=== PATIENT | male | born 1950 | race Caucasian/White ===

== ENCOUNTER 2020-07-15 07:14 | Outpatient (REF) | payer MEDICARE, SELFPAY ==
[2020-07-15 12:22] LABS: Alanine Aminotransferase 28 U/L (0-40); Albumin Level 4.2 g/dL (3.5-5.0); Alkaline Phosphatase 122 U/L (39-117); Anion Gap 12 (12-20); Aspartate Amino Transferase 23 U/L (5-37); Bilirubin Total 2.1 mg/dL (0.0-1.0); Blood Urea Nitrogen 13 mg/dL (9-16); Calcium 8.9 mg/dL (8.4-10.2); Carbon Dioxide 27 mmol/L (22-29); Chloride 105 mmol/L (96-108); Cholesterol 189 mg/dL; Estimated Glomerular Filt Rate > 60; Glucose Fasting 108 mg/dL (60-99); HDL Cholesterol 43 mg/dL; LDL Cholesterol Calculated 128 mg/dl; Potassium 4.5 mmol/l (3.3-5.1); Sodium 139 mmol/L (135-145); Total Protein 6.6 g/dL (6.5-8.0); Triglycerides 91 mg/dL
== END 2020-07-15 07:15 | disposition home or self-care (01) ==
LOC: HO.HMGCLDS 07:14
PROVIDERS: PCP Internal Medicine; Visit Provider Urology
DX: E66.9 Obesity, unspecified (principal); K21.9 Gastro-esophageal reflux disease without esophagitis; N40.0 Benign prostatic hyperplasia without lower urinary tract symptoms; I10 Essential (primary) hypertension; R73.02 Impaired glucose tolerance (oral); E78.00 Pure hypercholesterolemia, unspecified; G62.9 Polyneuropathy, unspecified; R97.20 Elevated prostate specific antigen [PSA]
CPT/HCPCS: 80053; 80061; 84153

== ENCOUNTER → 2020-07-17 08:41 | Outpatient (BNVA) | payer MEDICARE, SELFPAY | PROVIDERS: PCP Internal Medicine; Referring Provider Internal Medicine; Visit Provider Urology | DX: N40.0 Benign prostatic hyperplasia without lower urinary tract symptoms (principal); N52.9 Male erectile dysfunction, unspecified; R97.20 Elevated prostate specific antigen [PSA] | CPT/HCPCS: Q3014 ==

== ENCOUNTER 2021-05-09 08:12 | Outpatient (REF) | payer MEDICARE, SELFPAY ==
--- NOTE | ~2021-05-09 | XR_ITS ---
EXAMINATION: LEFT HIP. RIGHT KNEE.. CLINICAL INFORMATION: Pain. COMPARISON: Right hip 03/02/2014, right hip 06/05/2016 TECHNIQUE: 2 views right knee. AP pelvis and left hip 2 views. FINDINGS: Right knee: There is mild loss of medial and patellofemoral compartment joint space with a moderate size anterior suprapatella enthesophyte. No loose bodies or bony erosive changes seen. There is mild joint effusion noted. AP pelvis: There is a total right hip prosthesis in alignment. There is severe loss of left hip joint space. SI joints are symmetrical and normal. No fracture involving the pelvic bones. Left hip: There is severe superior loss of left hip joint space with subchondral cystic changes along the femoral head and minimal medial and lateral hip joint periarticular spurring. No fracture or loose body seen. No soft tissue swelling noted. XR/XR knee RT 2V IMPRESSION: Mild degenerative changes medial and patellofemoral compartments with mild suprapatellar effusion. Moderate degenerative changes left hip joint with periarticular spurring and subchondral cystic changes along the femoral head.
--- NOTE | ~2021-05-09 | XR_ITS ---
EXAMINATION: LEFT HIP. RIGHT KNEE.. CLINICAL INFORMATION: Pain. COMPARISON: Right hip 03/02/2014, right hip 06/05/2016 TECHNIQUE: 2 views right knee. AP pelvis and left hip 2 views. FINDINGS: Right knee: There is mild loss of medial and patellofemoral compartment joint space with a moderate size anterior suprapatella enthesophyte. No loose bodies or bony erosive changes seen. There is mild joint effusion noted. AP pelvis: There is a total right hip prosthesis in alignment. There is severe loss of left hip joint space. SI joints are symmetrical and normal. No fracture involving the pelvic bones. Left hip: There is severe superior loss of left hip joint space with subchondral cystic changes along the femoral head and minimal medial and lateral hip joint periarticular spurring. No fracture or loose body seen. No soft tissue swelling noted. XR/XR hip LT w PEL1V IMPRESSION: Mild degenerative changes medial and patellofemoral compartments with mild suprapatellar effusion. Moderate degenerative changes left hip joint with periarticular spurring and subchondral cystic changes along the femoral head.
== END 2021-05-09 08:13 | disposition home or self-care (01) ==
LOC: HO.HMGCX 08:12
PROVIDERS: PCP Internal Medicine; Visit Provider Internal Medicine
DX: Z13.89 Encounter for screening for other disorder (principal)
CPT/HCPCS: 73502; 73560

== ENCOUNTER 2021-05-22 08:22 | Outpatient (REF) | payer MEDICARE, SELFPAY ==
--- NOTE | ~2021-05-22 | XR_ITS ---
EXAMINATION: XR KNEE AP STANDING CLINICAL INFORMATION: Pain COMPARISON: Previous right knee x-ray April 2021 TECHNIQUE: AP bilateral standing view of the knees was obtained. FINDINGS: There is mild right medial femoral tibial joint space narrowing. No fracture, dislocation or bone lesion is seen. Soft tissues are unremarkable. Standing AP view of the left knee is unremarkable. XR/XR knee standing BI IMPRESSION: Mild right medial femoral tibial joint space narrowing.
== END 2021-05-22 08:23 | disposition home or self-care (01) ==
LOC: HO.HOSX 08:22
PROVIDERS: Visit Provider Orthopaedic Surgery
DX: M16.12 Unilateral primary osteoarthritis, left hip (principal)
CPT/HCPCS: 73565; 99202

== ENCOUNTER 2021-07-15 06:58 | Outpatient (REF) | payer MEDICARE, SELFPAY ==
[2021-07-15 07:15] LABS: MANUAL DIFF FLAG NO
[2021-07-15 07:22] LABS: Basophils Percent Auto 0.6 % (0-2); Eosinophils Absolute Auto 0.3 X10*3/uL (0.0-0.4); Eosinophils Percent Auto 5.2 % (0-4); Hematocrit 41.7 % (42.0-52.0); Hemoglobin 14.2 g/dl (14.0-18.0); Imm Gran Abs Auto 0.01 X10*3/uL (0.00-0.03); Imm Gran Pct Auto 0.2 % (0.0-0.4); Lymphocytes Percent Auto 31.3 % (20-40); Mean Corpuscular HGB Conc 34.1 g/dl (31.0-36.0); Mean Corpuscular Hemoglobin 30.5 pg (27.0-33.0); Mean Corpuscular Volume 89.5 fL (80.0-98.0); Monocytes Absolute Auto 0.6 X10*3/uL (0.1-1.2); Monocytes Percent Auto 9.7 % (2-11); Neutrophils Absolute Auto 3.4 x10*3/uL (2.0-8.3); Platelet Count 262 X10*3/uL (160-400); Red Blood Count 4.66 X10*6/uL (4.60-5.80); Red Cell Distribution Width 13.3 % (11.0-16.0); White Blood Count 6.4 X10*3/uL (4.8-10.8)
[2021-07-15 07:49] LABS: Alanine Aminotransferase 31 U/L (0-40); Alkaline Phosphatase 142 U/L (39-117); Anion Gap 11 (12-20); Aspartate Amino Transferase 22 U/L (5-37); Bilirubin Total 1.4 mg/dL (0.0-1.0); Blood Urea Nitrogen 15 mg/dL (9-16); Calcium 9.2 mg/dL (8.4-10.2); Carbon Dioxide 25 mmol/L (22-29); Chloride 107 mmol/L (96-108); Cholesterol 189 mg/dL; Estimated Glomerular Filt Rate > 60; Glucose Random 122 mg/dL (60-115); HDL Cholesterol 39 mg/dL; LDL Cholesterol Calculated 134 mg/dl; Sodium 139 mmol/L (135-145); Total Protein 6.2 g/dL (6.5-8.0); Triglycerides 80 mg/dL
[2021-07-15 08:13] LABS: Free T4 (Free Thyroxine) 1.04 ng/dL (0.71-1.85); Prostate Specific Antigen Scr 2.93 ng/mL (<0.05-4.0); Thyroid Stimulating Hormone 1.55 uIU/mL (0.32-4.0)
[2021-07-15 08:32] LABS: PSA,Total (Free>4and<10) 2.97 ng/mL (0.00-4.00)
[2021-07-15 09:01] LABS: Folate 19.7 ng/mL (> or = 4.0); Vitamin B12 643 pg/mL (200-900)
== END 2021-07-15 06:59 | disposition home or self-care (01) ==
LOC: HO.LAB 06:58
PROVIDERS: Absent Provider Urology; PCP Internal Medicine; Visit Provider Internal Medicine
DX: Z12.5 Encounter for screening for malignant neoplasm of prostate (principal); E78.00 Pure hypercholesterolemia, unspecified; N13.8 Other obstructive and reflux uropathy; N40.1 Benign prostatic hyperplasia with lower urinary tract symptoms
CPT/HCPCS: 36415; 80053; 80061; 82607; 82746; 84153; 84439; 84443; 85025

== ENCOUNTER → 2021-07-18 08:19 | Outpatient (BNVA) | payer MEDICARE, SELFPAY | PROVIDERS: Visit Provider Urology | DX: Z13.89 Encounter for screening for other disorder (principal) | CPT/HCPCS: Q3014 ==

== ENCOUNTER → 2021-09-29 09:55 | Outpatient (BNVA) | payer MEDICARE, SELFPAY | PROVIDERS: PCP Internal Medicine; Visit Provider Orthopaedic Surgery | DX: Z13.89 Encounter for screening for other disorder (principal) ==

== ENCOUNTER → 2021-10-23 10:51 | Outpatient (BNVA) | payer MEDICARE, SELFPAY | PROVIDERS: Visit Provider Physician Assistant | DX: M16.12 Unilateral primary osteoarthritis, left hip (principal) | CPT/HCPCS: 99212 ==

== ENCOUNTER 2021-10-28 06:04 | Inpatient (IN) | payer MEDICARE, SELFPAY ==
--- NOTE | 2021-10-03 07:10 | ECG_ITS ---
Test Reason : pre op Blood Pressure : / mmHG Vent. Rate : 100 BPM Atrial Rate : 100 BPM P-R Int : 156 ms QRS Dur : 090 ms QT Int : 360 ms P-R-T Axes : 062 -09 048 degrees QTc Int : 464 ms Normal sinus rhythm Normal ECG When compared with ECG of 07-AUG-2015 16:47, Minimal criteria for Anterior infarct are no longer Present T wave inversion no longer evident in Inferior leads Referred By: Lawson Espino Electronically Signed By:ARTI ALCANTARA MD
[2021-10-03 07:24] LABS: MANUAL DIFF FLAG NO
[2021-10-03 07:41] LABS: Basophils Absolute Auto 0.1 X10*3/uL (0.0-0.2); Basophils Percent Auto 0.9 % (0-2); Eosinophils Absolute Auto 0.4 X10*3/uL (0.0-0.4); Eosinophils Percent Auto 5.6 % (0-4); Hematocrit 41.2 % (42.0-52.0); Hemoglobin 13.6 g/dl (14.0-18.0); Imm Gran Abs Auto 0.03 X10*3/uL (0.00-0.03); Imm Gran Pct Auto 0.4 % (0.0-0.4); Lymphocytes Absolute Auto 2.1 X10*3/uL (1.2-4.9); Mean Corpuscular Hemoglobin 29.6 pg (27.0-33.0); Mean Corpuscular Volume 89.8 fL (80.0-98.0); Monocytes Absolute Auto 0.7 X10*3/uL (0.1-1.2); Monocytes Percent Auto 8.7 % (2-11); Neutrophils Absolute Auto 4.2 x10*3/uL (2.0-8.3); Neutrophils Percent Auto 56.4 % (45-73); Platelet Count 266 X10*3/uL (160-400); Red Blood Count 4.59 X10*6/uL (4.60-5.80); Red Cell Distribution Width 13.8 % (11.0-16.0); White Blood Count 7.5 X10*3/uL (4.8-10.8)
[2021-10-03 07:46] LABS: Anion Gap 11 (12-20); Blood Urea Nitrogen 16 mg/dL (9-16); Calcium 9.1 mg/dL (8.4-10.2); Carbon Dioxide 26 mmol/L (22-29); Chloride 107 mmol/L (96-108); Estimated Glomerular Filt Rate > 60; Glucose Random 162 mg/dL (60-115); Sodium 140 mmol/L (135-145)
[2021-10-17 12:08] VITALS: BP 122/70; PULSE 90; RESP 20; O2SAT 97; BMI 32.5
[2021-10-17 15:14] LABS: MRSA Nasal PCR NEGATIVE (Negative); SA Nasal PCR NEGATIVE (Negative)
--- NOTE | 2021-10-27 09:25 | P.CONAN_ITS ---
Documented by User: Cynthia Milian NP 10/27/21 09:36 HPI - Anesthesia Eval Consult details Narrative: 70yo M for Hip Total Replacement PCP cleared [facility] Active Problems Active Problems: All Active Problems (Updated 10/17/21 @ 11:57 by Mari Regalado RN) Right knee pain (Acute) Somatic dysfunction of left sacroiliac joint (Acute) Left groin pain (Acute) Right knee pain (Acute) Osteoarthritis of left hip (Acute) Elevated PSA (Acute) Preop exam for internal medicine (Acute) Impaired glucose tolerance (Acute) Erectile dysfunction (Acute) Obesity (BMI 30-39.9) (Acute) BPH (benign prostatic hyperplasia) (Acute) Peripheral neuropathy (Acute) Hypercholesterolemia (Acute) Hypertension (Acute) GERD (gastroesophageal reflux disease) (Acute) Osteoarthritis (Acute) Past Medical History Medical History BPH (benign prostatic hyperplasia) COVID-19 vaccine series completed Erectile dysfunction GERD (gastroesophageal reflux disease) Hypercholesterolemia Hypertension Impaired glucose tolerance Lumbar degenerative disc disease Obesity (BMI 30-39.9) Osteoarthritis Peripheral neuropathy PSA elevation Renal calculi Family History Family History Father Lung cancer Mother Acute CVA (cerebrovascular accident) Diabetes Hypertension CVD (cardiovascular disease) Maternal Uncle Myocardial infarction Surgical History Surgical History H/O colonoscopy History of circumcision History of esophagogastroduodenoscopy (EGD) History of lithotripsy History of repair of rotator cuff History of total right hip replacement Hx of blepharoplasty Social History Social History (Updated 10/01/21 @ 11:14 by Cesar Sanchez MD) Housing: House Are you a primary director medicare sales to a significant other at home: No Do you presently have visiting nurse or other home services: No Alcohol intake: current Alcohol intake frequency: does not drink Patient Tobacco Use Status: Never used Tobacco e-Cigarette/Vaping Use: Never Used Second Hand Smoke Exposure: No Use of substances other than those prescribed or required for medical reasons: No Have you been hit, kicked, punched, or otherwise hurt by someone within the past year? If so, by whom?: No Are you DNR?: No Advance Directives Information Provided: Yes (brochure given) Advance Directives on File: No Recently lost weight without trying: No Eating poorly because of decreased appetite: No Nutrition Risks: No Nutritional Risk Poor oral hygiene: No (upper partial) Current occupational status: retired Current occupation: Left handed Meds Allergies Allergy/AdvReac Type Severity Reaction Status Date / Time codeine [Codeine] AdvReac Intermediate hallucinations Verified 10/28/21 07:03 (years ago)-has had since without reaction Home Medications Medication Instructions Recorded Confirmed Last Taken Type ascorbate calcium (vitamin C) 500 500 mg PO DAILY 10/01/21 10/23/21 Unknown History mg tablet cholecalciferol (vitamin D3) 50 50 mcg PO DAILY 10/01/21 10/23/21 Unknown History mcg (2,000 unit) capsule yfwaiwjm-hiy-smspf acid 0.4 1 tab PO DAILY 10/01/21 10/23/21 Unknown History mg-lycopene 300 mcg-lutein 250 mcg tablet (Centrum Silver) vitamin E 200 unit capsule 200 unit PO DAILY 10/01/21 10/23/21 Unknown History acetaminophen 650 mg 650 mg PO Q6H 10/17/21 10/23/21 Unknown History tablet,extended release cetirizine 10 mg tablet (Allergy 10 mg PO DAILY 10/17/21 10/23/21 10/28/21 05:30 History Relief (cetirizine)) finasteride 5 mg tablet 5 mg PO QAM 10/17/21 10/23/21 10/28/21 05:30 History tamsulosin 0.4 mg capsule 0.4 mg PO BEDTIME 10/17/21 10/23/21 Unknown History Exam Exam Date and Time: October 27, 2021 0925 Height,Weight and Vital Signs: Height 5 ft 10 in Weight 102.965 kg Last Vital Signs Pulse 90 10/17/21 12:08 Resp 20 10/17/21 12:08 BP 122/70 10/17/21 12:08 Pulse Ox 97 10/17/21 12:08 Pertinent Lab Results Pertinent Lab Results: Laboratory Tests 10/03/21 10/03/21 10/17/21 07:22 07:22 12:30 WBC 7.5 RBC 4.59 L Hgb 13.6 L Hct 41.2 L MCV 89.8 MCH 29.6 MCHC 33.0 RDW 13.8 Plt Count 266 MPV 10.0 Immature Gran % (Auto) 0.4 Neut % (Auto) 56.4 Lymph % (Auto) 28.0 [place] % (Auto) 8.7 Eos % (Auto) 5.6 H Baso % (Auto) 0.9 Lymph # (Auto) 2.1 [place] # (Auto) 0.7 Eos # (Auto) 0.4 Baso # (Auto) 0.1 Abs Immat Gran (auto) 0.03 Absolute Neuts (auto) 4.2 Absolute Nucleated RBC 0.000 Nucleated RBC % (auto) 0.0 Sodium 140 Potassium 4.0 Chloride 107 Carbon Dioxide 26 Anion Gap 11 L BUN 16 Creatinine 0.79 Estim Creat Clear Calc TNP Estimated GFR > 60 Random Glucose 162 H Calcium 9.1 Nasal Screen MRSA (PCR) NEGATIVE Nasal S. aureus Screen NEGATIVE Nasal MRSA/S.aureus Interp SEE NOTE Blood Type Antibody Screen 10/17/21 12:55 WBC RBC Hgb Hct MCV MCH MCHC RDW Plt Count MPV Immature Gran % (Auto) Neut % (Auto) Lymph % (Auto) [place] % (Auto) Eos % (Auto) Baso % (Auto) Lymph # (Auto) [place] # (Auto) Eos # (Auto) Baso # (Auto) Abs Immat Gran (auto) Absolute Neuts (auto) Absolute Nucleated RBC Nucleated RBC % (auto) Sodium Potassium Chloride Carbon Dioxide Anion Gap BUN Creatinine Estim Creat Clear Calc Estimated GFR Random Glucose Calcium Nasal Screen MRSA (PCR) Nasal S. aureus Screen Nasal MRSA/S.aureus Interp Blood Type B Positive Antibody Screen NEGATIVE Narrative Narrative: EKG 09/2021 Vent. Rate : 100 BPM ? ? Atrial Rate : 100 BPM ?? P-R Int : 156 ms? QRS Dur : 090 ms ? ? QT Int : 360 ms ? ? ? P-R-T Axes : 062 -09 048 degrees ?? QTc Int : 464 ms ? Normal sinus rhythm Normal ECG When compared with ECG of 07-AUG-2015 16:47, Minimal criteria for Anterior infarct are no longer Present T wave inversion no longer evident in Inferior leads Assessment and Plan Assessment Anesthesia Assessment: Chart Reviewed Documented by User: Jaron Reyes MD 10/28/21 09:42 [facility] Past Medical History Medical History BPH (benign prostatic hyperplasia) COVID-19 vaccine series completed Erectile dysfunction GERD (gastroesophageal reflux disease) Hypercholesterolemia Hypertension Impaired glucose tolerance Lumbar degenerative disc disease Obesity (BMI 30-39.9) Osteoarthritis Peripheral neuropathy PSA elevation Renal calculi Family History Family History Father Lung cancer Mother Acute CVA (cerebrovascular accident) Diabetes Hypertension CVD (cardiovascular disease) Maternal Uncle Myocardial infarction Family history of problems with anesthesia: No Surgical History Surgical History H/O colonoscopy History of circumcision History of esophagogastroduodenoscopy (EGD) History of lithotripsy History of repair of rotator cuff History of total right hip replacement Hx of blepharoplasty History of Problems with Anesthesia: No Social History Social History (Updated 10/01/21 @ 11:14 by Cesar Sanchez MD) Housing: House Are you a primary director medicare sales to a significant other at home: No Do you presently have visiting nurse or other home services: No Alcohol intake: current Alcohol intake frequency: does not drink Patient Tobacco Use Status: Never used Tobacco e-Cigarette/Vaping Use: Never Used Second Hand Smoke Exposure: No Use of substances other than those prescribed or required for medical reasons: No Have you been hit, kicked, punched, or otherwise hurt by someone within the past year? If so, by whom?: No Are you DNR?: No Advance Directives Information Provided: Yes (brochure given) Advance Directives on File: No Recently lost weight without trying: No Eating poorly because of decreased appetite: No Nutrition Risks: No Nutritional Risk Poor oral hygiene: No (upper partial) Current occupational status: retired Current occupation: Left handed Meds Allergies Allergy/AdvReac Type Severity Reaction Status Date / Time codeine [Codeine] AdvReac Intermediate hallucinations Verified 10/28/21 07:03 (years ago)-has had since without reaction Home Medications Medication Instructions Recorded Confirmed Last Taken Type ascorbate calcium (vitamin C) 500 500 mg PO DAILY 10/01/21 10/23/21 Unknown History mg tablet cholecalciferol (vitamin D3) 50 50 mcg PO DAILY 10/01/21 10/23/21 Unknown History mcg (2,000 unit) capsule qilvmmnr-nef-nemma acid 0.4 1 tab PO DAILY 10/01/21 10/23/21 Unknown History mg-lycopene 300 mcg-lutein 250 mcg tablet (Centrum Silver) vitamin E 200 unit capsule 200 unit PO DAILY 10/01/21 10/23/21 Unknown History acetaminophen 650 mg 650 mg PO Q6H 10/17/21 10/23/21 Unknown History tablet,extended release cetirizine 10 mg tablet (Allergy 10 mg PO DAILY 10/17/21 10/23/21 10/28/21 05:30 History Relief (cetirizine)) finasteride 5 mg tablet 5 mg PO QAM 10/17/21 10/23/21 10/28/21 05:30 History tamsulosin 0.4 mg capsule 0.4 mg PO BEDTIME 10/17/21 10/23/21 Unknown History Exam Airway Mallampati Class: III TM Dist: >3cm Neck ROM: Full Loose/Missing/Broken Teeth: Yes Assessment and Plan Assessment Anesthesia Assessment: Anesthesia Plan Discussed Final Anesthetic Review Family History of Problems with Anesthesia: No History of Problems with Anesthesia: No NPO: Yes ASA Class: III Final Preanesthetic Review: No Changes in Pt Med Stat, Meds/Allgs Chart Reviewed, Consent Obtained/Reviewed and Anes Risks/Benef Reviewed Patient Risk: Intermediate Procedure Risk: Intermediate Anesthetic Plan Anesthetic Plan: MAC:, Spinal and Regional Block Disposition: Standard PACU
[2021-10-28] VITALS (27 sets, daily range): BP systolic 107–146; BP diastolic 48–83; PULSE 67–109; RESP 14–35; TEMP 36.4–37.4; O2SAT 96–100
--- NOTE | ~2021-10-28 | XR_ITS ---
EXAMINATION: XR PELVIS CLINICAL INFORMATION: Left hip replacement COMPARISON: Previous x-ray April 2021 TECHNIQUE: AP view of the pelvis. FINDINGS: There is a new left hip replacement in satisfactory position. No fracture or dislocation is seen. There is a right hip replacement in satisfactory position. There are postoperative changes to the soft tissues. XR/XR pelvis 1-2V IMPRESSION: Satisfactory appearance of left hip replacement.
[2021-10-28] MEDS: oxyCODONE HCl ER 10 MG TAB.ER.12H PO ×2 (06:46→19:37)
[2021-10-28 06:58] LABS: COVID-19 Test Negative (Negative)
[2021-10-28] MEDS: Lactated Ringers 1,000 ML 100 ML IVCONT ×3 (07:04→22:48)
--- NOTE | 2021-10-28 07:28 | MHC.SHP ---
Pre-Procedural Eval Section A Date of Service: 10/28/21 The patient is an INPATIENT: No Changes since office visit: Yes Patient answered all questions; No Cold of Flu in the past 2 weeks, No New Medical Problems and No Changes in Medication The History & Physical has been completed within 30 days and I have reviewed it.: Yes Section B Chief Complaint: LT WOLFGANG Allergies: Allergies Allergy/AdvReac Type Severity Reaction Status Date / Time codeine [Codeine] AdvReac Intermediate hallucinations Verified 10/28/21 07:03 (years ago)-has had since without reaction Plan I have reviewed the history and physical and performed a pertinent physical examination on my patient. No changes have occurred unless specified.
--- NOTE | 2021-10-28 09:05 | PM.OP ---
Brief Operative Note Date of Service: 10/28/21 Pre-op diagnosis: left hip OA Post-op diagnosis: same Procedure: Left WOLFGANG Implants: Ermine trident2 58/20deg Ermine Accolade 2 1321 deg #7/ +0 36 ceramic Surgeon: Lawson Espino MD Anesthesia: GETA and local Was an Verifier Operator used for this Procedure?: Yes Verifier Operator: Donato Alvares Estimated blood loss (mL): 200 IV fluids (mL): 1,000 Pathology: other Condition: stable Disposition: PACU
--- NOTE | 2021-10-28 09:06 | W.PM.OPN ---
Operative Note Operative Note Date of Service: 10/28/21 Narrative: Pre-op diagnosis: left hip OA Post-op diagnosis: same Procedure: Left WOLFGANG Implants: [place] trident2 58/20deg [place] Accolade 2 1321 deg #7/ +0 36 ceramic Surgeon: Lawson Espino MD Anesthesia: GETA and local Was an Paramedical Aide used for this Procedure?: Yes Paramedical Aide: Donato Alvares Estimated blood loss (mL): 200 IV fluids (mL): 1,000 Pathology: other Condition: stable Disposition: PACU Procedure in detail: Patient was brought into the operating room and placed in the right lateral decubitus position. All bony prominences were well padded and the limb was prepped and draped in standard sterile fashion. Time-out was called to identify proper site procedure proper surgeon IV antibiotics and 1 g of transaxemic acid were administered. I began by making a curvilinear incision over the posterolateral aspect of the greater trochanter. Dissection was taken down to the tensor fascia which was incised in line with the incision and a Charnley retractor was placed. Cautery was used to maintain hemostasis. A werewolf device was also used. The hip was internally rotated and the external rotators were identified. The vessels were cauterized and a full-thickness capsular/external rotator layer was developed starting just proximal to the piriformis. This layer was tagged and a dull Hohmann retractor was placed underneath the neck in the hip was dislocated. Hemostasis was maintained with electrocautery. The head was eburnated. A neck cut was made 1 cm proximal to the lesser trochanter and the head and neck were removed and measured as a 54 on the back table. I started with a 50, medialized and sequentially reamed up to a size 58 and impacted a 58mm cup at approximately 45 degrees of inclination and 25 degrees of version. I then placed a 20 deg posterior lipped liner and turned my attention to the femur. I identified the piriformis insertion and used this as a starting point for my dennis cutter. The medius tendon was protected with a Hibs retractor. I then used a Charnley awl to identify the canal and a curved curette to remove the lateral bone. I irrigated copiously. I then sequentially broached in the patient's natural version to a size #7 and placed my trial implants. Using a +0 trail head I took the hip through range of motion. I was very satisfied with the stability and length. Therefore I removed all instrumentation and copiously irrigated. I placed my final femoral implant and again took the hip through range of motion and was satisfied with the stability and length using a +0 head. My final ceramic head with impacted in place and then reduced. I then irrigated for 3 minutes with iodine and placed 1 g of local tranaxemic acid. I then performed a capsular closure with 2.0 fiberwire, Rajeev's fascia with 0 Vicryl, subcuticular with 2-0 Vicryl and the skin with ashia. Patient was placed into a sterile dressing. Radiographs were obtained at the completion of the case and I was satisfied with the component position. Patient was extubated brought to the recovery room in stable condition. There were no known complications.
[2021-10-28] MEDS: fentaNYL citrate/PF 100 MCG/2 ML VIAL 50 MCG IVPUSH ×2 (09:40→09:45)
[2021-10-28] MEDS: oxyCODONE HCl Immed Release 5 MG TABLET 10 MG PO (09:50)
[2021-10-28] MEDS: HYDROmorphone HCl 0.5 MG/0.5 ML SYRINGE IVPUSH ×4 (09:50→10:20)
[2021-10-28] MEDS: HYDROmorphone HCl 1 MG/ML SYRINGE IVPUSH (10:59)
[2021-10-28] MEDS: ceFAZolin Sodium/Dextrose,Iso 2 GM/50 ML PIGGYBACK IV (13:58)
[2021-10-28] MEDS: 0.9 % Sodium Chloride Flush 3 ML SYRINGE IVFLUSH (15:39)
--- NOTE | 2021-10-28 15:45 | HO.PM.IMCN ---
History of Present Illness Data of Consult Service Date: 10/28/21 Requesting physician: Lawson Espino Primary Care Provider: Cesar Sanchez MD HPI 70 year old man with history of hypertension, BPH, GERD, hyperlipidemia, admitted by Orthopedic surgery and status post right total hip arthroplasty. He has been able to eat and drink without any nausea or vomiting he reports his pain 08/25. His vital signs are stable. He is currently sitting up in bed. Review of Systems Review of Systems: Denies any recent fever chills or decrease in appetite respiratory denies any shortness of breath coverage production cardiovascular Denied chest pain gastrointestinal denies any dysphagia abdominal pain nausea vomiting or diarrhea genitourinary denies any dysuria frequency or hematuria musculoskeletal denies any joint pain or swelling neuropsych denies any weakness or seizures all other systems reviewed are negative [facility] Medical History BPH (benign prostatic hyperplasia) COVID-19 vaccine series completed Erectile dysfunction GERD (gastroesophageal reflux disease) Hypercholesterolemia Hypertension Impaired glucose tolerance Lumbar degenerative disc disease Obesity (BMI 30-39.9) Osteoarthritis Peripheral neuropathy PSA elevation Renal calculi Family History Father Lung cancer Mother Acute CVA (cerebrovascular accident) Diabetes Hypertension CVD (cardiovascular disease) Maternal Uncle Myocardial infarction Surgical History H/O colonoscopy History of circumcision History of esophagogastroduodenoscopy (EGD) History of lithotripsy History of repair of rotator cuff History of total right hip replacement Hx of blepharoplasty Social History (Updated 10/01/21 @ 11:14 by Cesar Sanchez MD) Housing: House Are you a primary caregiver assisted living to a significant other at home: No Do you presently have visiting nurse or other home services: No Alcohol intake: current Alcohol intake frequency: does not drink Patient Tobacco Use Status: Never used Tobacco e-Cigarette/Vaping Use: Never Used Second Hand Smoke Exposure: No Use of substances other than those prescribed or required for medical reasons: No Currently Displaying Signs/Symptoms of Drug Intoxication Withdrawal: No Have you been hit, kicked, punched, or otherwise hurt by someone within the past year? If so, by whom?: No Are you DNR?: No Advance Directives Information Provided: Yes (brochure given) Advance Directives on File: No Recently lost weight without trying: No Eating poorly because of decreased appetite: No Nutrition Risks: No Nutritional Risk Poor oral hygiene: No (upper partial) Current occupational status: retired Current occupation: Left handed Meds Allergies Allergy/AdvReac Type Severity Reaction Status Date / Time codeine [Codeine] AdvReac Intermediate hallucinations Verified 10/28/21 07:03 (years ago)-has had since without reaction Active Medications: Current Medications Acetaminophen (Acetaminophen 325 Mg Tablet) 650 mg PO Q6H PRN PRN Reason: Pain, Mild (Pain Scale 1-3) Aspirin (Aspirin 325 Mg Tablet) 325 mg PO BID MEY Celecoxib (Celecoxib 200 Mg Capsule) 200 mg PO BID MEY Docusate Sodium (Docusate Sodium 100 Mg Capsule) 100 mg PO BID PENDING SALE TO [facility] Fentanyl (Fentanyl Citrate/Pf 100 Mcg/2 Ml Vial) 50 mcg IVPUSH Q5M PRN; Protocol PRN Reason: Pain, Moderate (Pain Scale 4-6 Last Admin: 10/28/21 09:45 Dose: 50 mcg Documented by: Finasteride (Finasteride 5 Mg Tablet) 5 mg PO DAILY PENDING SALE TO [facility] Hydromorphone HCl (Hydromorphone Hcl 1 Mg/Ml Syringe) 1 mg IVPUSH Q10M PRN; Protocol PRN Reason: Pain, Severe (Pain Scale 7-10) Last Admin: 10/28/21 10:59 Dose: 1 mg Documented by: Hydromorphone HCl (Hydromorphone Hcl 1 Mg/Ml Syringe) 0.25 mg IVPUSH Q4H PRN; Protocol PRN Reason: Pain, Severe (Pain Scale 7-10) Lactated Ringer's (Lr) 1,000 mls @ 100 mls/hr IVCONT .Q10H MEY Last Admin: 10/28/21 15:40 Dose: Not Given Documented by: Promethazine HCl 6.25 mg/ (Sodium Chloride) 50.25 mls @ 201 mls/hr IV ONCE PRN PRN Reason: Nausea and Vomiting Cefazolin Sodium/Dextrose (Ancef) 2 gm in 50 mls @ 100 mls/hr IV POSTOP MEY Last Infusion: 10/28/21 15:40 Dose: Infused Documented by: Loratadine (Loratadine 10 Mg Tablet) 10 mg PO DAILY MEY Omeprazole (Omeprazole 20 Mg Capsule.Dr) 20 mg PO DAILY@0630 PENDING SALE TO [facility] Ondansetron HCl (Ondansetron Hcl 4 Mg/2 Ml Vial) 4 mg IVPUSH ONCE PRN PRN Reason: Nausea and Vomiting Ondansetron HCl (Ondansetron Hcl 4 Mg/2 Ml Vial) 4 mg IVPUSH Q8H PRN PRN Reason: Nausea and Vomiting Oxycodone HCl (Oxycodone Hcl Immed Release 5 Mg Tablet) 5 mg PO Q4H PRN PRN Reason: Pain, Moderate (Pain Scale 4-6 Oxycodone HCl (Oxycodone Hcl Er 10 Mg Tab.Er.12h) 10 mg PO BID PENDING [facility]ALE TO [facility] Sodium Chloride (0.9 % Sodium Chloride Flush 3 Ml Syringe) 3 ml IVFLUSH QSHIFT PENDING SALE TO [facility] Last Admin: 10/28/21 15:39 Dose: 3 ml Documented by: Tamsulosin HCl (Tamsulosin Hcl 0.4 Mg Capsule) 0.4 mg PO BEDTIME PENDING SALE TO [facility] Home Medications Medication Instructions Recorded Confirmed Last Taken Type ascorbate calcium (vitamin C) 500 500 mg PO DAILY 10/01/21 10/23/21 Unknown History mg tablet cholecalciferol (vitamin D3) 50 50 mcg PO DAILY 10/01/21 10/23/21 Unknown History mcg (2,000 unit) capsule [id number] acid 0.4 1 tab PO DAILY 10/01/21 10/23/21 Unknown History mg-lycopene 300 mcg-lutein 250 mcg tablet (Centrum Silver) vitamin E 200 unit capsule 200 unit PO DAILY 10/01/21 10/23/21 Unknown History acetaminophen 650 mg 650 mg PO Q6H 10/17/21 10/23/21 Unknown History tablet,extended release cetirizine 10 mg tablet (Allergy 10 mg PO DAILY 10/17/21 10/23/21 10/28/21 05:30 History Relief (cetirizine)) finasteride 5 mg tablet 5 mg PO QAM 10/17/21 10/23/21 10/28/21 05:30 History tamsulosin 0.4 mg capsule 0.4 mg PO BEDTIME 10/17/21 10/23/21 Unknown History Physical Exam Vital Signs and Narrative: Vital Signs: Last Vital Signs Temp 98 F 10/28/21 14:36 Pulse 72 10/28/21 14:36 Resp 18 10/28/21 14:36 BP 144/72 H 10/28/21 14:36 Pulse Ox 96 10/28/21 14:36 BMI result Body Mass Index 32.5 Appearing in no acute distress head is normocephalic atraumatic eyes pupils are PERRLA sclera is anicteric mouth throat mucous membranes are intact and moist neck is supple no lymphadenopathy, no JVD noted lung sounds are clear to auscultation heart regular rate rhythm, clear S1, S2 positive bowel sounds, abdomen is soft, nontender neuro patient is alert x3, no focal deficits Results Labs CBC and Chem 7: 10/03/21 07:22 10/03/21 07:22 Labs: Laboratory Results - last 24 hr 10/28/21 06:20 COVID-19 (KIM) Negative COVID-19 Clin Com See Note Imaging Radiologist's Impressions: Impressions Pelvis X-Ray 10/28/21 10:46 IMPRESSION: Satisfactory appearance of left hip replacement. Assessment and Plan (1) Osteoarthritis of left hip: Status: Acute Plan 70-year-old man with history of hypertension, GERD, hyperlipidemia BPH admitted by Orthopedic surgery and status post left hip arthroplasty sign Total left hip arthroplasty Management as per surgical team Pain management Hypertension. Stable blood pressure Antihypertensives on hold to avoid postoperative hypotension Restart when appropriate GERD Continue PPI BPH Continue finasteride and tamsulosin DVT prophylaxis with full-dose aspirin Attending Dr. Barker Full code
[2021-10-28] MEDS: Celecoxib 200 MG CAPSULE PO (19:37)
[2021-10-28] MEDS: Docusate Sodium 100 MG CAPSULE PO (19:38)
[2021-10-28] MEDS: Tamsulosin HCL 0.4 MG CAPSULE PO (19:38)
[2021-10-29] VITALS (7 sets, daily range): BP systolic 114–144; BP diastolic 63–74; PULSE 74–108; RESP 17–20; TEMP 36.3–37.4; O2SAT 93–97
[2021-10-29] MEDS: HYDROmorphone HCl 1 MG/ML SYRINGE 0.25 MG IVPUSH (04:10)
[2021-10-29] MEDS: Omeprazole 20 MG CAPSULE.DR PO (04:12)
[2021-10-29 06:22] LABS: Basophils Percent Auto 0.4 % (0-2); Eosinophils Percent Auto 0.3 % (0-4); Hematocrit 38.5 % (42.0-52.0); Hemoglobin 12.8 g/dl (14.0-18.0); Imm Gran Abs Auto 0.03 X10*3/uL (0.00-0.03); Imm Gran Pct Auto 0.3 % (0.0-0.4); Lymphocytes Absolute Auto 1.4 X10*3/uL (1.2-4.9); Lymphocytes Percent Auto 12.9 % (20-40); MANUAL DIFF FLAG SCAN; Mean Corpuscular HGB Conc 33.2 g/dl (31.0-36.0); Mean Corpuscular Hemoglobin 30.2 pg (27.0-33.0); Mean Corpuscular Volume 90.8 fL (80.0-98.0); Mean Platelet Volume 10.3 fL (9.4-12.4); Monocytes Absolute Auto 1.7 X10*3/uL (0.1-1.2); Monocytes Percent Auto 15.7 % (2-11); Neutrophils Absolute Auto 7.8 x10*3/uL (2.0-8.3); Neutrophils Percent Auto 70.4 % (45-73); Platelet Count 249 X10*3/uL (160-400); Red Blood Count 4.24 X10*6/uL (4.60-5.80); Red Cell Distribution Width 13.8 % (11.0-16.0); SCAN SMEAR FLAG 1; White Blood Count 11.1 X10*3/uL (4.8-10.8)
[2021-10-29 06:48] LABS: Anion Gap 10 (12-20); Blood Urea Nitrogen 10 mg/dL (9-16); Calcium 9.1 mg/dL (8.4-10.2); Carbon Dioxide 26 mmol/L (22-29); Chloride 107 mmol/L (96-108); Creatinine Clr Calc Pharmacy 116.3; Estimated Glomerular Filt Rate > 60; Glucose Fasting 115 mg/dL (60-99); Potassium 4.3 mmol/L (3.3-5.1); SLIDE REVIEW VERIFIED; Sodium 139 mmol/L (135-145)
--- NOTE | 2021-10-29 06:53 | PHA.MEDREC ---
Pharmacy Consult ? Medication Reconciliation Pharmacy has reviewed the medication reconciliation.
[2021-10-29] MEDS: oxyCODONE HCl ER 10 MG TAB.ER.12H PO ×2 (08:01→20:22)
[2021-10-29] MEDS: Finasteride 5 MG TABLET PO (08:01)
[2021-10-29] MEDS: Loratadine 10 MG TABLET PO (08:03)
[2021-10-29] MEDS: Celecoxib 200 MG CAPSULE PO ×2 (08:03→20:22)
[2021-10-29] MEDS: Docusate Sodium 100 MG CAPSULE PO ×2 (08:03→20:22)
[2021-10-29] MEDS: Aspirin 325 MG TABLET PO ×2 (08:03→20:21)
--- NOTE | 2021-10-29 08:03 | PM.PNORT ---
Subjective Subjective Date of Service: 10/29/21 Interval history: POD 1 s/p LT WOLFGANG no overnight events resting in bed, pain is tolerable denies cob, cp, palpitations Physical Exam Vital Signs: Vital Signs: Last Vital Signs Temp 97.8 F 10/29/21 03:26 Pulse 100 10/29/21 03:26 Resp 18 10/29/21 03:26 BP 130/72 10/29/21 03:26 Pulse Ox 96 10/29/21 03:26 BMI result Body Mass Index 32.5 Const: General: cooperative, healthy appearing and no acute distress Resp: Effort & Inspection: normal respiratory effort and able to speak in complete sentences Cardio: Rate: regular rate Peripheral pulses: Peripheral pulses 2+ throughout GI: Palpation (GI): Soft to palpation Skin: General skin exam: no rashes or lesions noted Extrem: Other: left hip bandage clean dry and intact, no erythema, mild swelling, sensation intact. Procedures Date of Service Date of Service: 10/29/21 Progress Note: A&P Assessment and plan (1) Status post total left knee replacement: Status: Acute Assessment and Plan: Continue pain mgmnt Begin Aspirin for dvt ppx begin PT/OT for LT WOLFGANG Dispo planning-Pending PT eval, pain mgmnt Fall Risk Details Current Medications: Current Medications Acetaminophen (Acetaminophen 325 Mg Tablet) 650 mg PO Q6H PRN PRN Reason: Pain, Mild (Pain Scale 1-3) Aspirin (Aspirin 325 Mg Tablet) 325 mg PO BID [facility] Celecoxib (Celecoxib 200 Mg Capsule) 200 mg PO BID [facility], [facility] Last Admin: 10/28/21 19:37 Dose: 200 mg Documented by: Docusate Sodium (Docusate Sodium 100 Mg Capsule) 100 mg PO BID [facility] Last Admin: 10/28/21 19:38 Dose: 100 mg Documented by: Fentanyl (Fentanyl Citrate/Pf 100 Mcg/2 Ml Vial) 50 mcg IVPUSH Q5M PRN; Protocol PRN Reason: Pain, Moderate (Pain Scale 4-6 Last Admin: 10/28/21 09:45 Dose: 50 mcg Documented by: Finasteride (Finasteride 5 Mg Tablet) 5 mg PO DAILY [facility] Hydromorphone HCl (Hydromorphone Hcl 1 Mg/Ml Syringe) 1 mg IVPUSH Q10M PRN; Protocol PRN Reason: Pain, Severe (Pain Scale 7-10) Last Admin: 10/28/21 10:59 Dose: 1 mg Documented by: Hydromorphone HCl (Hydromorphone Hcl 1 Mg/Ml Syringe) 0.25 mg IVPUSH Q4H PRN; Protocol PRN Reason: Pain, Severe (Pain Scale 7-10) Last Admin: 10/29/21 04:10 Dose: 0.25 mg Documented by: Lactated Ringer's (Lr) 1,000 mls @ 100 mls/hr IVCONT .Q10H [facility] Last Admin: 10/28/21 22:48 Dose: 100 mls/hr Documented by: Promethazine HCl 6.25 mg/ (Sodium Chloride) 50.25 mls @ 201 mls/hr IV ONCE PRN PRN Reason: Nausea and Vomiting Cefazolin Sodium/Dextrose (Ancef) 2 gm in 50 mls @ 100 mls/hr IV POSTOP [facility] Last Infusion: 10/28/21 15:40 Dose: Infused Documented by: Loratadine (Loratadine 10 Mg Tablet) 10 mg PO DAILY [facility] Omeprazole (Omeprazole 20 Mg Capsule.Dr) 20 mg PO DAILY@0630 [facility] Last Admin: 10/29/21 04:12 Dose: 20 mg Documented by: Ondansetron HCl (Ondansetron Hcl 4 Mg/2 Ml Vial) 4 mg IVPUSH ONCE PRN PRN Reason: Nausea and Vomiting Ondansetron HCl (Ondansetron Hcl 4 Mg/2 Ml Vial) 4 mg IVPUSH Q8H PRN PRN Reason: Nausea and Vomiting Oxycodone HCl (Oxycodone Hcl Immed Release 5 Mg Tablet) 5 mg PO Q4H PRN PRN Reason: Pain, Moderate (Pain Scale 4-6 Oxycodone HCl (Oxycodone Hcl Er 10 Mg Tab.Er.12h) 10 mg PO BID [facility] Last Admin: 10/28/21 19:37 Dose: 10 mg Documented by: Sodium Chloride (0.9 % Sodium Chloride Flush 3 Ml Syringe) 3 ml IVFLUSH QSHIFT [facility] Last Admin: 10/28/21 22:51 Dose: Not Given Documented by: Tamsulosin HCl (Tamsulosin Hcl 0.4 Mg Capsule) 0.4 mg PO BEDTIME [facility] Last Admin: 10/28/21 19:38 Dose: 0.4 mg Documented by: Time Spent With Patient Time: Total time spent is greater than 50% in coordination of care (as documented) at patient's floor/unit and/or counseling patient: Time with patient: less than 15 minutes Quality Stroke Does the patient have a stroke diagnosis?: No VTE Prior VTE?: No VTE Risk Level:: Surgical - very high VTE Device Contraindication: N/A - Device Ordered VTE Drug Contraindication: N/A - Med Ordered
[2021-10-29] MEDS: 0.9 % Sodium Chloride Flush 3 ML SYRINGE IVFLUSH ×3 (08:04→20:22)
[2021-10-29] MEDS: Lactated Ringers 1,000 ML 100 ML IVCONT (09:19)
--- NOTE | 2021-10-29 10:27 | HO.PM.IMPN ---
Subjective Subjective Date of Service: 10/29/21 Review of Systems Follow up medical consult pain 08/25 sitting up in chair had an episode of dizziness when getting up with PT but better now Physical Exam Vital Signs: Vital Signs: Last Vital Signs Temp 99.4 F 10/29/21 08:00 Pulse 108 H 10/29/21 08:00 Resp 20 10/29/21 08:00 BP 130/63 10/29/21 08:00 Pulse Ox 93 10/29/21 08:00 BMI result Body Mass Index 32.5 Appearing in no acute distress lung sounds are clear to auscultation heart regular rate rhythm, clear S1, S2 positive bowel sounds, abdomen is soft, nontender neuro patient is alert x3, no focal deficits Surgical incision of visualize, surgical dressing intact Objective Data Active Medications Acetaminophen (Acetaminophen 325 Mg Tablet) 650 mg PO Q6H PRN PRN Reason: Pain, Mild (Pain Scale 1-3) Aspirin (Aspirin 325 Mg Tablet) 325 mg PO BID [facility] Last Admin: 10/29/21 08:03 Dose: 325 mg Documented by: ADONIS Celecoxib (Celecoxib 200 Mg Capsule) 200 mg PO BID [facility] Last Admin: 10/29/21 08:03 Dose: 200 mg Documented by: ADONIS Docusate Sodium (Docusate Sodium 100 Mg Capsule) 100 mg PO BID [facility] Last Admin: 10/29/21 08:03 Dose: 100 mg Documented by: ADONIS Fentanyl (Fentanyl Citrate/Pf 100 Mcg/2 Ml Vial) 50 mcg IVPUSH Q5M PRN; Protocol PRN Reason: Pain, Moderate (Pain Scale 4-6 Last Admin: 10/28/21 09:45 Dose: 50 mcg Documented by: EVERT Finasteride (Finasteride 5 Mg Tablet) 5 mg PO DAILY [facility] Last Admin: 10/29/21 08:01 Dose: 5 mg Documented by: ADONIS Hydromorphone HCl (Hydromorphone Hcl 1 Mg/Ml Syringe) 1 mg IVPUSH Q10M PRN; Protocol PRN Reason: Pain, Severe (Pain Scale 7-10) Last Admin: 10/28/21 10:59 Dose: 1 mg Documented by: EVERT Hydromorphone HCl (Hydromorphone Hcl 1 Mg/Ml Syringe) 0.25 mg IVPUSH Q4H PRN; Protocol PRN Reason: Pain, Severe (Pain Scale 7-10) Last Admin: 10/29/21 04:10 Dose: 0.25 mg Documented by: TIM Promethazine HCl 6.25 mg/ (Sodium Chloride) 50.25 mls @ 201 mls/hr IV ONCE PRN PRN Reason: Nausea and Vomiting Cefazolin Sodium/Dextrose (Ancef) 2 gm in 50 mls @ 100 mls/hr IV POSTOP [facility] Last Infusion: 10/28/21 15:40 Dose: 0 mls/hr Documented by: FELIPE Loratadine (Loratadine 10 Mg Tablet) 10 mg PO DAILY [facility] Last Admin: 10/29/21 08:03 Dose: 10 mg Documented by: ADONIS Omeprazole (Omeprazole 20 Mg Capsule.Dr) 20 mg PO DAILY@0630 [facility] Last Admin: 10/29/21 04:12 Dose: 20 mg Documented by: TIM Ondansetron HCl (Ondansetron Hcl 4 Mg/2 Ml Vial) 4 mg IVPUSH ONCE PRN PRN Reason: Nausea and Vomiting Ondansetron HCl (Ondansetron Hcl 4 Mg/2 Ml Vial) 4 mg IVPUSH Q8H PRN PRN Reason: Nausea and Vomiting Oxycodone HCl (Oxycodone Hcl Immed Release 5 Mg Tablet) 5 mg PO Q4H PRN PRN Reason: Pain, Moderate (Pain Scale 4-6 Oxycodone HCl (Oxycodone Hcl Er 10 Mg Tab.Er.12h) 10 mg PO BID [facility] Last Admin: 10/29/21 08:01 Dose: 10 mg Documented by: ADONIS Sodium Chloride (0.9 % Sodium Chloride Flush 3 Ml Syringe) 3 ml IVFLUSH QSHIFT [facility] Last Admin: 10/29/21 08:04 Dose: 3 ml Documented by: ADONIS Tamsulosin HCl (Tamsulosin Hcl 0.4 Mg Capsule) 0.4 mg PO BEDTIME [facility] Last Admin: 10/28/21 19:38 Dose: 0.4 mg Documented by: TIM Labs CBC & Chem 7: 10/29/21 05:26 10/29/21 05:26 Labs: Laboratory Results - last 24 hr 10/29/21 10/29/21 05:26 05:26 MCV 90.8 MCH 30.2 MCHC 33.2 RDW 13.8 Plt Count 249 MPV 10.3 Immature Gran % (Auto) 0.3 Neut % (Auto) 70.4 Lymph % (Auto) 12.9 L Bowman % (Auto) 15.7 H Eos % (Auto) 0.3 Baso % (Auto) 0.4 Lymph # (Auto) 1.4 Bowman # (Auto) 1.7 H Eos # (Auto) 0.0 Baso # (Auto) 0.0 Abs Immat Gran (auto) 0.03 Absolute Neuts (auto) 7.8 Absolute Nucleated RBC 0.000 Nucleated RBC % (auto) 0.0 Smear Tech's Comments VERIFIED Anion Gap 10 L Estim Creat Clear Calc 116.3 Estimated GFR > 60 Fasting Glucose 115 H Calcium 9.1 Assessment and Plan (1) Osteoarthritis: Status: Acute Plan 70-year-old man with history of hypertension, GERD, hyperlipidemia BPH admitted by Orthopedic surgery and status post left hip arthroplasty sign Total left hip arthroplasty Management as per surgical team Pain management Hypertension.? Stable blood pressure Antihypertensives on hold to avoid postoperative hypotension Restart when appropriate GERD Continue PPI BPH Continue finasteride and tamsulosin DVT prophylaxis with full-dose aspirin Attending Dr. Wilde Full code Consultation completed. Will sign off Quality Stroke Does the patient have a stroke diagnosis?: No VTE Prior VTE?: No VTE Risk Level:: Surgical - very high VTE Device Contraindication: N/A - Device Ordered VTE Drug Contraindication: N/A - Med Ordered
--- NOTE | 2021-10-29 13:53 | HO.POSTANES ---
Post Anesthesia Evaluation Post Anesthesia Evaluation Vital Signs: Vital Signs Temp Pulse Resp BP Pulse Ox 10/29/21 12:00 97.4 F 74 20 114/64 97 10/29/21 08:00 99.4 F 108 H 20 130/63 93 10/29/21 03:26 97.8 F 100 18 130/72 96 Anesthesia: Spinal and Nerve Block Mental Status: Awake Pain Control: Satisfactory Nausea/Vomiting: None Hydration: Adequate Anesthesia-Related Issues: No Anes. Related Issues
[2021-10-29] MEDS: Tamsulosin HCL 0.4 MG CAPSULE PO (20:22)
[2021-10-30 03:49] VITALS: BP 129/68; PULSE 87; RESP 17; TEMP 36.9; O2SAT 96
[2021-10-30 05:51] LABS: MANUAL DIFF FLAG NO
[2021-10-30 05:55] LABS: Basophils Absolute Auto 0.1 X10*3/uL (0.0-0.2); Basophils Percent Auto 0.5 % (0-2); Eosinophils Absolute Auto 0.2 X10*3/uL (0.0-0.4); Eosinophils Percent Auto 1.9 % (0-4); Hematocrit 37.1 % (42.0-52.0); Hemoglobin 12.6 g/dl (14.0-18.0); Imm Gran Abs Auto 0.05 X10*3/uL (0.00-0.03); Imm Gran Pct Auto 0.5 % (0.0-0.4); Lymphocytes Absolute Auto 1.4 X10*3/uL (1.2-4.9); Lymphocytes Percent Auto 13.2 % (20-40); Mean Corpuscular Hemoglobin 30.7 pg (27.0-33.0); Mean Corpuscular Volume 90.5 fL (80.0-98.0); Mean Platelet Volume 9.5 fL (9.4-12.4); Monocytes Absolute Auto 1.4 X10*3/uL (0.1-1.2); Monocytes Percent Auto 12.7 % (2-11); Neutrophils Absolute Auto 7.8 x10*3/uL (2.0-8.3); Neutrophils Percent Auto 71.2 % (45-73); Platelet Count 221 X10*3/uL (160-400); White Blood Count 10.9 X10*3/uL (4.8-10.8)
[2021-10-30] MEDS: Omeprazole 20 MG CAPSULE.DR PO (05:56)
[2021-10-30 06:14] LABS: Anion Gap 11 (12-20); Blood Urea Nitrogen 12 mg/dL (9-16); Calcium 8.7 mg/dL (8.4-10.2); Carbon Dioxide 26 mmol/L (22-29); Chloride 108 mmol/L (96-108); Creatinine Clr Calc Pharmacy 116.3; Estimated Glomerular Filt Rate > 60; Glucose Fasting 124 mg/dL (60-99); Potassium 4.1 mmol/L (3.3-5.1); Sodium 141 mmol/L (135-145)
[2021-10-30 07:07] VITALS: BP 137/84; PULSE 98; RESP 19; TEMP 36.6; O2SAT 95
[2021-10-30] MEDS: Finasteride 5 MG TABLET PO (07:10)
[2021-10-30] MEDS: Aspirin 325 MG TABLET PO (07:10)
[2021-10-30] MEDS: Celecoxib 200 MG CAPSULE PO (07:10)
[2021-10-30] MEDS: Docusate Sodium 100 MG CAPSULE PO (07:10)
[2021-10-30] MEDS: oxyCODONE HCl ER 10 MG TAB.ER.12H PO (07:10)
[2021-10-30] MEDS: Loratadine 10 MG TABLET PO (07:10)
[2021-10-30] MEDS: 0.9 % Sodium Chloride Flush 3 ML SYRINGE IVFLUSH (07:11)
--- NOTE | 2021-10-30 08:57 | P.DS_ITS ---
DS: Providers Provider Date of Service: 10/30/21 Date of admission: 10/28/21 06:04 Primary care physician: Cesar Sanchez MD Consults: 10/28/21 14:56 Consult to Hospitalist Routine Consulting Provider: Hospitalist Reason For Exam: medical management DS: Diagnosis Discharge Diagnosis (1) Osteoarthritis: Status: Acute DS: Summary Hospital Course Hospital Course: The patient underwent a successful left total hip arthroplasty, they were transferred to PACU and then to the floor to recover. During their stay, their vitals were stable, afebrile at 978. Labs were unremarkable, H/H 12.6/37.1. POD 1 they were started on Aspirin 325mg po bid for DVT ppx, they also received Physical Therapy services twice a day. Prior to discharge, their dressing was changed, incision clean dry and intact, new Aquacel dressing applied and the plan was to be discharged home with VNA services. Time Spent with Patient Time attestation: Total time spent providing and/or coordinating discharge services: Discharge coordination time: Less than 30 minutes Quality: Stroke Does the patient have a stroke diagnosis?: No Physical Exam Vital Signs: Vital Signs: Last Vital Signs Temp 97.8 F 10/30/21 07:07 Pulse 98 10/30/21 07:07 Resp 19 10/30/21 07:07 BP 137/84 10/30/21 07:07 Pulse Ox 95 10/30/21 07:07 BMI result Body Mass Index 32.5 Extrem: Other: Left hip incision is clean, dry, intact. No ecchymosis, redness or drainage. Cindy intact. NVI. DS: Data Data Completed and Pending Completed studies during hospitalization [Text1]: Pending at discharge 10/28/21 08:37 Surgical [PTH] Routine Labs on day of discharge: Laboratory Results - last 24 hr 10/30/21 10/30/21 05:45 05:45 WBC 10.9 H RBC 4.10 L Hgb 12.6 L Hct 37.1 L MCV 90.5 MCH 30.7 MCHC 34.0 RDW 14.0 Plt Count 221 MPV 9.5 Immature Gran % (Auto) 0.5 H Neut % (Auto) 71.2 Lymph % (Auto) 13.2 L Gladwin % (Auto) 12.7 H Eos % (Auto) 1.9 Baso % (Auto) 0.5 Lymph # (Auto) 1.4 Gladwin # (Auto) 1.4 H Eos # (Auto) 0.2 Baso # (Auto) 0.1 Abs Immat Gran (auto) 0.05 H Absolute Neuts (auto) 7.8 Absolute Nucleated RBC 0.000 Nucleated RBC % (auto) 0.0 Sodium 141 Potassium 4.1 Chloride 108 Carbon Dioxide 26 Anion Gap 11 L BUN 12 Creatinine 0.72 Estim Creat Clear Calc 116.3 Estimated GFR > 60 Fasting Glucose 124 H Calcium 8.7 Discharge Plan Discharge Patient Disposition: Home Health Service Discharge Diagnosis: s/p left WOLFGANG Referrals: Donato Alvares, ROHINI [Physician Marketing Performance Analyst] - 1 Week (11/13/21 at 12:45 with your first PT appointment ) Discharge Medications: New acetaminophen 325 mg Tablet 650 mg PO Q6H PRN (Reason: Pain, Mild (Pain Scale 1-3)) 30 Days Qty: 240 0RF aspirin 325 mg Tablet 325 mg PO BID 42 Days Qty: 84 0RF celecoxib 200 mg Capsule 200 mg PO BID 30 Days Qty: 60 0RF docusate sodium 100 mg Capsule 100 mg PO BID 30 Days Qty: 60 0RF oxycodone 5 mg Tablet 5 mg PO Q4H PRN (Reason: Pain, Moderate (Pain Scale 4-6) 7 Days Qty: 42 0RF Continued amlodipine 10 mg tablet 10 mg PO DAILY Qty: 90 3RF omeprazole 20 mg capsule,delayed release(DR/EC) 20 mg PO DAILY 90 Days Qty: 90 2RF cetirizine [Allergy Relief (cetirizine)] 10 mg Tablet 10 mg PO DAILY 0RF acetaminophen 650 mg Tablet Extended Release 650 mg PO Q6H 0RF tamsulosin 0.4 mg capsule 0.4 mg PO BEDTIME 0RF finasteride 5 mg tablet 5 mg PO QAM 0RF lisinopril 40 mg tablet 40 mg PO DAILY 0RF cholecalciferol (vitamin D3) 50 mcg (2,000 unit) capsule 50 mcg PO DAILY 0RF ascorbate calcium (vitamin C) 500 mg tablet 500 mg PO DAILY 0RF Centrum Silver 0.4-300-250 mg-mcg-mcg tablet 1 tab PO DAILY 0RF vitamin E 200 unit capsule 200 unit PO DAILY 0RF tramadol 50 mg tablet 50 mg PO Q6H 90 Days Qty: 360 0RF Discharge Orders: Discharge Order (Routine); Ordered 10/30/21 Ordered By: Donato Alvares Diet: advance to usual diet Activity on Discharge: Use cane or walker Stand Alone Forms: Patient Portal Discharge page Care Plan Goals: restore fxn to left hip Health Concerns: none Plan of Treatment: Physical Therapy for total hip arthroplasty: posterior precautions, gait training, ROM, strength Limit stair climbing No showering, no tub bath-keep dressing clean, dry and intact No driving x6 weeks Continue Lovenox tabs once a day x 4 weeks Follow up with [facility] in 2 weeks Assessment: stable for d/c
--- NOTE | 2021-10-30 10:05 | W.MHC.F2F ---
Service Date Service Date: 10/30/21 Encounter Date of encounter: 10/30/21 Reasons for Services Signs and symptoms assessed: left hip pain, weakness with ambulation, poor balance Reason for physical therapy: home safety and mobility, therapeutic exercises, restore joint function, gait/transfer training, ADL training and energy conservation Reason for occupational therapy: home safety and mobility, therapeutic exercises, restore joint function, gait/transfer training, ADL training and energy conservation Homebound: Leaving the home is medically contraindicated at this time without the asist of a device and/or another person due th the listed conditions above and below. Reason homebound: unsteady gait / fall risk, pain with ambulation and unable to drive Certification: Based on the above findings, I certify that this patient is confined to the home and needs physical therapy and/or r continues to need occupational therapy. The patient is under my care, and I have initiated the establishment of the plan of care. The patient will be followed by a physician who will periodically review the plan of care.
--- NOTE | 2021-10-30 10:17 | MHC.CM.PN ---
PATIENT LIVES WITH HCP/SIGNIFICANT OTHER HCP ON FILE AND VERIFIED HE HAS A WALKER IN PREP FOR THIS SURGERY COVID VACCINATED X 3 WITH MODERNA BUT DOES NOT RECALL THE DATES FOR ALL 3 . HE IS DC HOME LATER TODAY WITH [facility] FOR HOME PHYSICAL THERAPY. [facility] WILL TRANSPORT HOME. RN AWARE OF PLAN. IMM 10/30 IN CHART
[2021-10-30 11:03] VITALS: BP 109/57; PULSE 101; RESP 18; TEMP 36.6; O2SAT 93
== END 2021-10-30 15:30 | disposition home health service (06) | DRG 470 ==
LOC: HO.SSSA 06:07 → HO.S3 14:04
PROVIDERS: Physician Assistant; Admitting Provider Orthopaedic Surgery; PCP Internal Medicine; Visit Provider Orthopaedic Surgery
PROC: 0SRB03A Replacement of Left Hip Joint with Ceramic Synthetic Substitute, Uncemented, Open Approach (ICD-10-PCS; CPT 27130; principal; 2021-10-28 07:30)
DX: M16.12 Unilateral primary osteoarthritis, left hip (principal); K21.9 Gastro-esophageal reflux disease without esophagitis; E78.5 Hyperlipidemia, unspecified; N40.0 Benign prostatic hyperplasia without lower urinary tract symptoms; Z96.642 Presence of left artificial hip joint; Z96.652 Presence of left artificial knee joint; Z20.822 Contact with and (suspected) exposure to COVID-19; Z88.5 Allergy status to narcotic agent; Z79.899 Other long term (current) drug therapy
CPT/HCPCS: 36415; 72170; 80048; 85025; 86850; 86900; 86901; 87635; 87640; 87641; 88304; 88311; 93005; 97110; 97116; 97162; 97165; 97530; C1776; J0131; J0690; J1100; J1170; J2250; J2370; J2405; J3010

== ENCOUNTER → 2021-11-13 12:18 | Outpatient (BNVA) | payer MEDICARE, SELFPAY | PROVIDERS: PCP Internal Medicine; Visit Provider Physician Assistant | DX: Z47.1 Aftercare following joint replacement surgery (principal); Z96.642 Presence of left artificial hip joint | CPT/HCPCS: 99212 ==

== ENCOUNTER → 2021-12-11 12:24 | Outpatient (BNVA) | payer MEDICARE, SELFPAY | PROVIDERS: PCP Internal Medicine; Visit Provider Physician Assistant | DX: Z47.1 Aftercare following joint replacement surgery (principal); Z96.642 Presence of left artificial hip joint | CPT/HCPCS: 99212 ==

== ENCOUNTER 2021-12-31 09:00 | Outpatient (RCR) | payer MEDICARE, SELFPAY ==
--- NOTE | 2021-11-13 15:23 | MHC.PT.OE ---
[facility] [place] Office [place] Office [place] Office [address] Sebastian Pate [address] [phone] F: [phone] F: [phone] F: [phone] F: [phone] Physical Therapy Evaluation Evaluation Date: 11/13/21 Current Condition Diagnosis: S/P LEFT THR Onset Date: Date of Surgery: 10/28/21 Chief Complaint/ Current Level of Function: Pt UNDERWENT Lt WOLFGANG AT [facility] ON 10/28/21, HE WAS D/C HOME W PT SERVICES THROUGH 11/12/21; JO-ANN REMOVED 11/13/21; HE HAS BEEN AMB W A W/WALKER Prior Level of Function/Occupation: Pt RESIDES IN A 1 LEVEL HOME W SIGNIF, 5 STAGGERED STEPS INTO HOME- HE IS 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, 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 Diagnostic Imaging: Patient Goals and Expectations: BACK TO NORMAL Past Medical History: PER Pt HE HAS ALTERED SENSORY Rt DISATL LE IF WEARING A CAST-> NERVE ENDING TENSION ON TAILBONE DUE TO SCOLIOSIS PER Pt; BPH (benign prostatic hyperplasia) COVID-19 vaccine series completed Erectile dysfunction GERD (gastroesophageal reflux disease) Hypercholesterolemia Hypertension Impaired glucose tolerance Lumbar degenerative disc disease Obesity (BMI 30-39.9) Osteoarthritis Peripheral neuropathy PSA elevation Renal calculi History of esophagogastroduodenoscopy (EGD) History of lithotripsy History of repair of rotator cuff History of total right hip replacement Hx of blepharoplasty ALLERGIES: CODEINE Medications: ACETAMINOPHEN; aspirin 325 mg Tablet 325 mg PO BID 42 Days Qty: 84 0RF celecoxib 200 mg Capsule 200 mg PO BID 30 Days Qty: 60 0RF docusate sodium 100 mg Capsule 100 mg PO BID 30 Days Qty: 60 0RF oxycodone 5 mg Tablet mlodipine 10 mg tablet 10 mg PO DAILY Qty: 90 3RF omeprazole 20 mg capsule,delayed release(DR/EC) 20 mg PO DAILY 90 Days Qty: 90 2RF cetirizine [Allergy Relief (cetirizine)] 10 mg Tablet 10 mg PO DAILY 0RF acetaminophen 650 mg Tablet Extended Release 650 mg PO Q6H 0RF tamsulosin 0.4 mg capsule 0.4 mg PO BEDTIME 0RF finasteride 5 mg tablet 5 mg PO QAM 0RF lisinopril 40 mg tablet 40 mg PO DAILY 0RF cholecalciferol (vitamin D3) 50 mcg (2,000 unit) capsule 50 mcg PO DAILY 0RF ascorbate calcium (vitamin C) 500 mg tablet 500 mg PO DAILY 0RF Centrum Silver 0.4-300-250 mg-mcg-mcg tablet 1 tab PO DAILY 0RF vitamin E 200 unit capsule 200 unit PO DAILY 0RF tramadol 50 mg Precautions/ Contraindications: CURRENT Lt WOLFGANG AND H/O Rt WOLFGANG 7 YRS AGO Outcome Measure: LEFI Pain Pain Score: 2 Pain Scale Used: Numeric (0 - 10) Pain Location/ Description: LEFT LATERAL HIP SORENESS Aggravating Factors: EVERYTHING HS CURLS Alleviating Factors: SITTING Objective Findings Posture: Rounded Shoulders Scoliosis Pes Planus Rt GENU RECURVATUM; Lt ILIAC CREST ELEV Skin & Soft Tissue/ Palpation: 11/13/21 JO-ANN REMOVED AND STERI STRIPS INTACT LEFT LAT HIP Gait/ Functional Mobility: CURRENTLY W W/WALKER->SLOW CHUCK, SHORTENED STANCE, DECR ANKLE MOB INDEP, BUT (+) UEs COMPENSATION AROM (PROM) Strength Cervical Spine Flexion: Extension: Lateral Flexion: Rotation: Cervical Comments: Flexion: Extension: Lateral Flexion: Rotation: Other: Shoulder Flexion: Extension: Abduction: ER: IR: Apley ER: Apley IR: Comments: Flexion: Extension: Abduction: Adduction: ER: IR: Other: Elbow Flexion: Extension: Pronation: Supination: Comments: Flexion: Extension: Pronation: Supination: Wrist Flexion: Wrist Extension: Other: Lumbar Spine Flexion: Extension: Lateral Flexion: Rotation: Comments: Transverse abdominus: Extensors: Other: Hip Flexion: Lt 90*; Rt 100* SEATED Extension: Lt 10* Abduction: Adduction: ER: IR: Comment: KNEES GROSSLY WFL KIRSTIN Flexion: Rt 4/5, Lt AT LEAST 3/5 Extension: Lt 3+/5, Rt 4-/5 Abduction: 4-/5 Lt, 4/5 Rt Adduction: 4+/5 ER: IR: Other: Knee Flexion: Extension: Comments: Patella Mobility: Flexion: Extension: Other: Ankle Dorsiflexion: Plantarflexion: Inversion: Eversion: Comments: Dorsiflexion: Plantarflexion: Inversion: Eversion: Comments: Adore Assessment: Sacroiliac Assessment: Muscle Length: Special Tests: Vitals: BP: HR: O2SAT: RR: Other: Balance: Neurological Screen: Biceps DTR: Brachioradialis DTR: Triceps DTR: Patella DTR: Achilles DTR: Other: Dermatomes: Sensation: Myotomes: Patient Education Primary Language Palauan Landscape Designer Required No Who was Educated Patient Readiness for Learning Accepting Current Knowledge Minimal, needs reinforcement Education Needs ADL's Disease Information Pain Teaching Method Verbal Demonstration How did Patient Demonstrate Learning Patient demonstrates Patient verbalizes Needs reinforcement Barriers to Learning None Assessment Assessment: 70 YO MALE REF TO PT S/P LEFT WOLFGANG-> HE WAS D/C'D HOME W PT SERVICES THROUGH 11/12/21. Pt IS MOTIVATED TO IMPROVE HIS FUNCTIONAL MOB AND REDUCE HIS PAIN. H/O Rt THR. OBJECTIVE FINDINGS: LIMITED AROM IN TRUNK AND PROX LEs, TIGHT PSOAS KIRSTIN AND DECR ANKLE DF KIRSTIN; DECR STRENGTH IN PROX / LUMBOPELVIC AND LEFT LE, POST-OP PAIN IN LEFT HIP ,AND HEALING ANT Lt HIP INCISION. FUNCTIONALLY, Pt IS AMB W A W/WALKER- HE HAS COMPENSATORY GAIT, MODIFIED STAIR MGMT, DECR STANDING, SLEEPING, AND DECR DYLAN TO ADLs . Pt IS A VERY GOOD PT CANDIDATE TO GUIDE HIM IN HIS POST-OP WOLFGANG COURSE, ADDRESSING THE ABOVE FINDINGS, PAIN MGMT, AND MAXIMIZING FUNCTIONAL INDEPENDENCE. Rehabilitation Potential: Good Plan of Care Frequency and Duration 2 x WK x 10 WKS Short Term Goals Pt'S Lt HIP PAIN DECREASED TO 2-3/10 IN 2 WKS Pt DEMON WFL AROM HIP EXT AND ANKLE DF/PF IN 3 WKS Pt DEMO IMPROVED GAIT MECH W LEAST RESTRICTIVE AD ON LEVEL GROUND AND STAIRS IN 3 WKS Pt DEMON WFL TRANSFERS W REDUCED UEs COMPENSATION IN 3 WKS Penitentiary Goals Pt INDEP W HEP PROGRESSION AND SELF-SX MGMT STRATEGIES IN 10 WKS Pt DEMON INDEP GAIT MECH W LEAST RESTR AD ON LEVEL AND STAIRS, REGULAR ADLs, WALKING AND INCR OVERALL FUNCT INDEP EVIDENT W IMPROVED LEFI SCORE BY 10-15 POINTS (AT EVAL 19/80) IN 10 WKS Pt's LEFT LE STRENGTH IMPROVED BY 1 GRADE IN 10 WKS Treatment Plan Therapeutic Exercise Dynamic Therapeutic Activities Manual Therapies Gait Home Exercise Program Patient Education Hot or Cold Pack Reviewed/ Agreed with Student Documentation: Therapist: Electronically signed by: Susan Beach PT Please sign and return to therapist. Thank you for your referral.
--- NOTE | 2022-03-03 14:58 | MHC.PT.DC ---
[facility] [place] Office [place] Office [place] Office [address] Sebastian Pate [address] [phone] F: [phone] F: [phone] F: [phone] F: [phone] Physical Therapy Discharge Report Diagnosis: S/P LEFT THR Date of Surgery: 10/28/21 Date of Evaluation: 11/13/21 Date of Discharge: 03/03/22 Treatments to Date: 11 Cancellations to Date: No Shows to Date: Discharge Status: Achieved Goals Improved Function Independent with HEP Patient Elected to Stop Discharge Summary: Pt had met all of his initial therapeutic goals and requested an extension of his therapy; new goals had been set though Pt did not follow up after his re-evaluation, his chart had been open x 1 month to allow for return. Electronically signed by: Hugo Asencio PT. Please sign and return to therapist. Thank you for your referral.
== END 2022-03-03 14:57 | disposition home or self-care (01) ==
LOC: HO.PTCHIC 09:00
PROVIDERS: PCP Internal Medicine; Visit Provider Physician Assistant
DX: Z96.642 Presence of left artificial hip joint (principal)
CPT/HCPCS: 97110; 97112; 97140; 97161; 97164

== ENCOUNTER 2022-01-22 08:31 | Outpatient (REF) | payer MEDICARE, SELFPAY ==
--- NOTE | ~2022-01-22 | XR_ITS ---
EXAMINATION: XR PELVIS CLINICAL INFORMATION: Pain COMPARISON: Previous x-ray October 2021 TECHNIQUE: AP view of the pelvis. FINDINGS: There are bilateral hip replacements in satisfactory position. No fracture, dislocation or x-ray evidence of loosening is seen. Bones of the pelvis are unremarkable. There are degenerative changes of the visualized lower lumbar spine. Soft tissues are unremarkable. XR/XR pelvis 1-2V IMPRESSION: Satisfactory appearance of bilateral hip replacements.
== END 2022-01-22 08:32 | disposition home or self-care (01) ==
LOC: HO.HOSX 08:31
PROVIDERS: Visit Provider Orthopaedic Surgery
DX: M25.559 Pain in unspecified hip (principal)
CPT/HCPCS: 72170

== ENCOUNTER → 2022-02-12 10:18 | Outpatient (BNVA) | payer MEDICARE, SELFPAY | PROVIDERS: PCP Internal Medicine; Visit Provider Nurse Practitioner Family | DX: M51.36 Other intervertebral disc degeneration, lumbar region (principal); R73.02 Impaired glucose tolerance (oral); G62.9 Polyneuropathy, unspecified; E66.9 Obesity, unspecified; Z68.33 Body mass index [BMI] 33.0-33.9, adult | CPT/HCPCS: 99202 ==

== ENCOUNTER 2022-07-07 06:56 | Outpatient (REF) | payer MEDICARE, SELFPAY ==
[2022-07-07 07:02] LABS: MANUAL DIFF FLAG NO
[2022-07-07 07:27] LABS: Basophils Percent Auto 0.5 % (0-2); Eosinophils Absolute Auto 0.3 X10*3/uL (0.0-0.4); Eosinophils Percent Auto 3.6 % (0-4); Hematocrit 45.6 % (42.0-52.0); Hemoglobin 15.6 g/dl (14.0-18.0); Imm Gran Abs Auto 0.02 X10*3/uL (0.00-0.03); Imm Gran Pct Auto 0.2 % (0.0-0.4); Immature Retic Fraction 3.5 % (2.3-13.4); Lymphocytes Absolute Auto 2.2 X10*3/uL (1.2-4.9); Lymphocytes Percent Auto 25.6 % (20-40); Mean Corpuscular HGB Conc 34.2 g/dl (31.0-36.0); Mean Corpuscular Hemoglobin 30.5 pg (27.0-33.0); Mean Corpuscular Volume 89.1 fL (80.0-98.0); Mean Platelet Volume 10.3 fL (9.4-12.4); Monocytes Absolute Auto 0.8 X10*3/uL (0.1-1.2); Neutrophils Absolute Auto 5.2 x10*3/uL (2.0-8.3); Neutrophils Percent Auto 61.1 % (45-73); Platelet Count 241 X10*3/uL (160-400); Red Blood Count 5.12 X10*6/uL (4.60-5.80); Red Cell Distribution Width 13.2 % (11.0-16.0); Retic HGB Equivalent 36.2 pg (30.0-35.0); Reticulocyte Percent 1.1 % (0.5-1.8); Reticulocytes Absolute 0.055 X10*6/uL (0.026-0.095); White Blood Count 8.4 X10*3/uL (4.8-10.8)
[2022-07-07 07:39] LABS: Estimated Average Glucose 114 mg/dL; Hemoglobin A1C 151.0459 umol/L; Hemoglobin A1c % 5.6 %
[2022-07-07 08:21] LABS: Alanine Aminotransferase 27 U/L (0-40); Albumin Level 4.2 g/dL (3.5-5.0); Alkaline Phosphatase 128 U/L (39-117); Anion Gap 12 (12-20); Aspartate Amino Transferase 22 U/L (5-37); Bilirubin Total 1.9 mg/dL (0.0-1.0); Blood Urea Nitrogen 14 mg/dL (9-16); Calcium 9.2 mg/dL (8.4-10.2); Carbon Dioxide 25 mmol/L (22-29); Chloride 108 mmol/L (96-108); Cholesterol 201 mg/dL; Estimated Glomerular Filt Rate > 60; Glucose Random 121 mg/dL (60-115); HDL Cholesterol 34 mg/dL; Iron 140 mcg/dL (45-160); LDL Cholesterol Calculated 144 mg/dl; PSA,Total (Free>4and<10) 1.98 ng/mL (0.00-4.00); Percent Iron Saturation 49 % (15-50); Potassium 4.2 mmol/L (3.3-5.1); Sodium 141 mmol/L (135-145); Thyroid Stimulating Hormone 1.21 uIU/mL (0.32-4.0); Total Iron Binding Capacity 288 mcg/dL (228-428); Total Protein 6.4 g/dL (6.5-8.0); Triglycerides 117 mg/dL; Unsaturated Iron Binding 148 ug/dL
[2022-07-07 08:24] LABS: Ferritin 195 ng/mL (20-250); Free T4 (Free Thyroxine) 1.02 ng/dL (0.71-1.85)
[2022-07-07 08:32] LABS: Folate 15.6 ng/mL (> or = 4.0); Vitamin B12 793 pg/mL (200-900)
== END 2022-07-07 06:57 | disposition home or self-care (01) ==
LOC: HO.LAB 06:56
PROVIDERS: Urology; Absent Provider Psychiatry & Neurology Neurology; PCP Internal Medicine; Visit Provider Internal Medicine
DX: Z12.5 Encounter for screening for malignant neoplasm of prostate (principal); R35.0 Frequency of micturition; R73.02 Impaired glucose tolerance (oral); E78.00 Pure hypercholesterolemia, unspecified; K21.9 Gastro-esophageal reflux disease without esophagitis; N40.1 Benign prostatic hyperplasia with lower urinary tract symptoms; D64.9 Anemia, unspecified
CPT/HCPCS: 36415; 80053; 80061; 82607; 82728; 82746; 83036; 83540; 84153; 84439; 84443; 85025; 85045

== ENCOUNTER → 2022-07-17 08:15 | Outpatient (BNVA) | payer MEDICARE, SELFPAY | PROVIDERS: PCP Internal Medicine; Visit Provider Urology | DX: N40.1 Benign prostatic hyperplasia with lower urinary tract symptoms (principal); R35.0 Frequency of micturition; R97.20 Elevated prostate specific antigen [PSA]; Z79.899 Other long term (current) drug therapy | CPT/HCPCS: 51798; 99212 ==

== ENCOUNTER 2023-01-12 06:50 | Outpatient (REF) | payer MEDICARE, SELFPAY ==
[2023-01-12 07:34] LABS: Estimated Average Glucose 108 mg/dL; Hemoglobin A1c % 5.4 %
[2023-01-12 07:54] LABS: Alanine Aminotransferase 28 U/L (0-40); Albumin Level 4.1 g/dL (3.5-5.0); Alkaline Phosphatase 121 U/L (39-117); Anion Gap 12 (12-20); Aspartate Amino Transferase 20 U/L (5-37); Bilirubin Total 1.7 mg/dL (0.0-1.0); Blood Urea Nitrogen 17 mg/dL (9-16); Carbon Dioxide 24 mmol/L (22-29); Chloride 108 mmol/L (96-108); Cholesterol 185 mg/dL; Estimated Glomerular Filt Rate > 60; Glucose Random 127 mg/dL (60-115); HDL Cholesterol 34 mg/dL; LDL Cholesterol Calculated 127 mg/dl; Potassium 4.4 mmol/L (3.3-5.1); Sodium 140 mmol/L (135-145); Total Protein 6.3 g/dL (6.5-8.0); Triglycerides 121 mg/dL
== END 2023-01-12 06:51 | disposition home or self-care (01) ==
LOC: HO.LAB 06:50
PROVIDERS: PCP Internal Medicine; Visit Provider Internal Medicine
DX: E78.00 Pure hypercholesterolemia, unspecified (principal); R73.02 Impaired glucose tolerance (oral)
CPT/HCPCS: 36415; 80053; 80061; 83036

== ENCOUNTER 2023-01-21 08:34 | Outpatient (REF) | payer MEDICARE, SELFPAY ==
--- NOTE | ~2023-01-21 | XR_ITS ---
EXAMINATION: XR PELVIS CLINICAL INFORMATION: Pain COMPARISON: Previous x-ray January 2023 TECHNIQUE: AP view of the pelvis. FINDINGS: There are bilateral hip replacements in satisfactory position. No fracture, dislocation or x-ray evidence of loosening. Bones of the pelvis are normal. There are degenerative changes visualized lower lumbar spine. Soft tissues are normal. XR/XR pelvis 1-2V IMPRESSION: Satisfactory appearance of bilateral hip replacements.
== END 2023-01-21 08:35 | disposition home or self-care (01) ==
LOC: HO.HOSX 08:34
PROVIDERS: Visit Provider Orthopaedic Surgery
DX: M51.36 Other intervertebral disc degeneration, lumbar region (principal); Z96.642 Presence of left artificial hip joint
CPT/HCPCS: 72170; 99212

== ENCOUNTER 2023-05-14 13:05 | Outpatient (AMB) | payer MEDICARE, SELFPAY ==
[2023-05-14 13:24] VITALS: BP 144/92; PULSE 81; O2SAT 98; BMI 33.6
--- NOTE | 2023-05-14 13:24 | A.OFFPC_ITS ---
Vital Signs 05/14/23 13:24 05/14/23 13:58 Height 5 ft 10 in Weight 234 lb BMI 33.6 BP 144/92 H 140/90 H Blood Pressure Location Lt brachial Position Sitting Pulse 81 Pulse Source Pulse Oximeter Pulse Oximetry (%) 98 Oxygen Delivery Method Room Air Intake Visit Reasons: Hypertension Allergies codeine [Codeine] Adverse Reaction (Intermediate, Verified 05/14/23 13:24) hallucinations (years ago)-has had since without reaction Medication List - Last Reconciled 05/14/23 by Cesar Sanchez MD acetaminophen ER 650 mg PO Q6H amlodipine 2.5 mg PO DAILY ascorbate calcium (vitamin C) 500 mg PO DAILY blood pressure monitor (Blood Pressure Kit) As directed cetirizine (Allergy Relief (cetirizine)) 10 mg PO DAILY cholecalciferol (vitamin D3) 50 mcg PO DAILY finasteride 5 mg PO DAILY 90 days lisinopril-hydrochlorothiazide 20-12.5 mg 1 tab PO BID 90 days metoprolol succinate ER 150 mg (1.5 x 100 mg) PO DAILY 90 days mmrueehn-jlj-WQ-lycopen-lutein 0.4 mg-300 mcg- 250 mcg (Centrum Silver) 1 tab PO DAILY omeprazole 20 mg PO DAILY 90 days tamsulosin 0.4 mg PO BEDTIME vitamin E 200 units PO DAILY Tobacco use date assessed: 10/02/22 Fall risk assessment: No Falls in past year Last assessed Fall Risk: 05/14/23 Dental Screening Dental Screen Date: 05/14/23 Did you have a dental visit in the last 12 months?: Yes Did you have a dental problem in the last 6 months where you did not have access to dental care?: No Was dental information given to patient?: Patient has dentist HPI Hypertension HPI Details 72-year-old obese male with GERD hyperte nsion hypercholesterolemia BPH impaired glucose tolerance last seen in December 2022. Patient is here for follow-up has been in touch with me with his blood pressure readings and has adjusted the blood pressure medication. Lisinopril hydrochlorothiazide 2012.5 twice a day April 12 2023, metoprolol succinate 150 mg once a day April 2023. complains of tiredness all day long discussed about sleep study but declined. Had a long discussion with the patient with regards to the blood pressure as we are having a difficult time getting the blood pressure under control. He also complains of feeling tired all day long but discussed with the patient that we do recommend having the sleep study done as this is 1 of the reasons why hypertension can be resistant but patient declined testing. Also explained to the patient that this affects the heart and it can give it a problem. Otherwise will need blood work again [facility] Medical History BPH (benign prostatic hyperplasia) COVID-19 vaccine series completed Erectile dysfunction GERD (gastroesophageal reflux disease) Hypercholesterolemia Hypertension Impaired glucose tolerance Lumbar degenerative disc disease Obesity (BMI 30-39.9) Osteoarthritis Osteoarthritis of left hip Peripheral neuropathy PSA elevation Renal calculi Surgical History H/O colonoscopy History of circumcision History of esophagogastroduodenoscopy (EGD) History of lithotripsy History of repair of rotator cuff History of total right hip replacement Hx of blepharoplasty Status post total left knee replacement Family History Father Lung cancer Mother Acute CVA (cerebrovascular accident) Diabetes Hypertension CVD (cardiovascular disease) Maternal Uncle Myocardial infarction Social History Housing: House Are you a primary home care liaison to a significant other at home: No Do you presently have visiting nurse or other home services: No Alcohol intake: current Alcohol intake frequency: does not drink Patient Tobacco Use Status: Never used Tobacco e-Cigarette/Vaping Use: Never Used Second Hand Smoke Exposure: No service: No Current occupational status: retired Current occupation: Left handed Cognitive needs: No Hearing needs: No Vision needs: No Questionnaire PHQ-9 Over the last 2 weeks, how often have you been bothered by any of the following problems? 1. Little interest or pleasure in doing things: not at all 2. Feeling down, depressed, or hopeless: not at all 3. Trouble falling or staying asleep, or sleeping too much: not at all 4. Feeling tired or having little energy: not at all 5. Poor appetite or overeating: not at all 6. Feeling bad about yourself - or that you are a failure or have let yourself or your family down: not at all 7. Trouble concentrating on things, such as reading the newspaper or watching television: not at all 8. Moving or speaking so slowly that other people could have noticed. Or the opposite - being so fidgety or restless that you have been moving around a lot more than usual: not at all 9. Thoughts that you would be better off or of hurting yourself in some way: not at all Total score: 0 Source: Developed by Drs. Aquilino Dyson, Wade Smiley and colleagues, with an educational summer from [employer]. Thrive Questionnaire Date Thrive assessed: 10/02/22 AUDIT C Alcohol Use Questionnaire (AUDIT-C) 1. How often do you have a drink containing alcohol?: Never 2. How many drinks containing alcohol do you have on a typical day when you are drinking?: 1 or 2 3. How often do you have six or more drinks on one occasion?: Never Total Score: 0 SEVERIANO-7 AMB Questionnaire SEVERIANO-7 Date SEVERIANO - 7 assessed: 10/02/22 Source: Developed by Drs. Aquilino Dyson, Tess Silva, Wade Palmer and colleagues, with an educational summer from [employer]. Physical exam (Primary Care) Vital Signs: Last Vital Signs Pulse 81 05/14/23 13:24 BP 144/92 H 05/14/23 13:24 Pulse Ox 98 05/14/23 13:24 Oxygen Delivery Method Room Air 05/14/23 13:24 BMI result Body Mass Index 33.6 Tobacco/Smoking Status: Tobacco use Status Tobacco use date assessed 10/02/22 05/14/23 13:25 Patient Tobacco Use Status Never used Tobacco 05/14/23 13:25 e-Cigarette/Vaping Use Never Used 05/14/23 13:25 PHQ-9: PHQ-9 Score PHQ-9: Total score 0 05/14/23 13:30 Thrive Assessment: Date of Thrive Assessment Date Thrive assessed 10/02/22 05/14/23 13:25 Const General: alert; No acute distress Eyes Conjunctivae: conjunctivae normal Resp Auscultation: clear to auscultation bilaterally Cardio Rate: regular rate Rhythm: regular rhythm GI Inspection: Yes normal to inspection Extrem General: Yes normal to inspection and No edema Assessment and Plan Assessment & Plan (1) Hypertension: Code(s): I10 - Essential (primary) hypertension Qualifiers: Hypertension type: essential hypertension Qualified Code(s): I10 - Essential (primary) hypertension Plan: Continue with blood pressure medication. Decrease salt intake and exercise patient presently on lisinopril hydrochlorothiazide 2012.5 twice a day since March metoprolol 150 mg once a day (2) GERD (gastroesophageal reflux disease): Code(s): K21.9 - Gastro-esophageal reflux disease without esophagitis Qualifiers: Esophagitis presence: without esophagitis Qualified Code(s): K21.9 - Gastro-esophageal reflux disease without esophagitis Plan: Avoid the foods that causes that usually spicy foods, tomato products, juices, coffee, soda and foods that your sensitive to. After eating do not lie down, allow 3-4 hours before in lie down. And keep the head of bed above 30 degrees to avoid the acid from going up. (3) Hypercholesterolemia: Code(s): E78.00 - Pure hypercholesterolemia, unspecified Plan: Avoid fried foods, chicken skin, eggs, butter margarine, pastries and meat. Be it pork or beef they have a lot of cholesterol LDL goal of less than 130 and triglyceride of less than 150 last blood work was December 2022 (4) BPH (benign prostatic hyperplasia): Code(s): N40.0 - Benign prostatic hyperplasia without lower urinary tract symptoms Qualifiers: Lower urinary tract symptom presence: symptoms present Lower urinary tract symptom detail: urinary frequency Qualified Code(s): N40.1 - Benign prostatic hyperplasia with lower urinary tract symptoms; R35.0 - Frequency of micturition Plan: Continue with finasteride 5 mg once a (5) Obesity (BMI 30-39.9): Code(s): E66.9 - Obesity, unspecified Plan: Diet and exercise (6) Impaired glucose tolerance: Code(s): R73.02 - Impaired glucose tolerance (oral) Plan: Decrease the amount of carbohydrate intake, pasta, bread, rice and potatoes are all sugar and that is aside from all the sweet stuff, remember that fruits are good but they are Sweet also. Orders: Orders Free T4 (Free Thyroxine) 3 Months I10 - Essential (primary) hypertension Thyroid Stimulating Hormone 3 Months I10 - Essential (primary) hypertension Complete Blood Count Auto Diff 3 Months I10 - Essential (primary) hypertension Comprehensive Met. Panel 3 Months I10 - Essential (primary) hypertension Lipid Panel 3 Months E78.00 - Pure hypercholesterolemia, unspecified, I10 - Essential (primary) hypertension Vitamin B12 and Folate 3 Months I10 - Essential (primary) hypertension Medications: New 2 amlodipine 2.5 mg PO DAILY 30 tabs 5RF I10 - Essential (primary) hypertension Changed From lisinopril-hydrochlorothiazide 20-12.5 mg 1 tab PO BID 60 tabs 2RF I10 - Essential (primary) hypertension To lisinopril-hydrochlorothiazide 20-12.5 mg 1 tab PO BID 90 days 180 tabs 2RF I10 - Essential (primary) hypertension Coding Level of Care Code Est Pt Level 4 (03691) Diagnoses Essential hypertension I10 Hypertension type: essential hypertension Gastroesophageal reflux disease without esophagitis K21.9 Esophagitis presence: without esophagitis Hypercholesterolemia E78.00 Benign prostatic hyperplasia with urinary frequency N40.1; R35.0 Lower urinary tract symptom presence: symptoms present Lower urinary tract symptom detail: urinary frequency Obesity (BMI 30-39.9) E66.9 Impaired glucose tolerance R73.02
[2023-05-14 13:58] VITALS: BP 140/90
== END 2023-05-14 14:14 | disposition home or self-care (01) ==
PROVIDERS: PCP Internal Medicine; Visit Provider Internal Medicine
DX: I10 Essential (primary) hypertension (principal); K21.9 Gastro-esophageal reflux disease without esophagitis; E78.00 Pure hypercholesterolemia, unspecified; N40.1 Benign prostatic hyperplasia with lower urinary tract symptoms; R35.0 Frequency of micturition; R73.02 Impaired glucose tolerance (oral)
CPT/HCPCS: 99214

== ENCOUNTER 2023-09-15 06:56 | Outpatient (REF) | payer MEDICARE, SELFPAY ==
[2023-09-15 08:15] LABS: Prostate Specific Antigen 1.66 ng/mL (<0.05-4.0)
== END 2023-09-15 06:57 | disposition home or self-care (01) ==
LOC: HO.LAB 06:56
PROVIDERS: PCP Internal Medicine; Visit Provider Urology
DX: R97.20 Elevated prostate specific antigen [PSA] (principal); Z12.5 Encounter for screening for malignant neoplasm of prostate
CPT/HCPCS: 36415; 84153

== ENCOUNTER 2023-09-22 09:29 | Outpatient (AMB) | payer MEDICARE, SELFPAY ==
--- NOTE | 2023-09-22 09:42 | MHC.OFFVIS ---
Intake Intake Visit Reasons: 1Y PSA(set) Intake Note: Patient is Present for Follow Up PSA Urology Medication: Finasteride, Tamsulosin Antibiotic Allergies: None Blood Thinners:None Allergies codeine [Codeine] Adverse Reaction (Intermediate, Verified 09/22/23 09:43) hallucinations (years ago)-has had since without reaction HPI HPI Comments History of Present Illness Details Desmond is a pleasant male. He is seen for the following urologic conditions - lower urinary tract symptoms - elevated PSA - erectile dysfunction Yearly evaluation PSA 1.6 Finasteride every other day Discussed coming off tamsulosin as has been on combination therapy for a number of years He will call if successful Elevated PSA/Abnormal COURT: . He presents for further evaluation of elevated PSA Current management is medication with 5AR. Laboratory investigations include a total PSA evaluation 10/03 7.1, 01/31 3.0, 08/02 2.5, 08/03 2.1, 07/05 2.0, 07/06 2.9, 07/07 2.0, 09/08 1.6 Individualized Prostate Cancer Risk Calculator 5-10% high risk, Would like to continue with observation and understands and accepts the risks of a possible delay in diagnosis, Discussed use of 5AR to help differentiate prostate cancer from benign disease. He would like to try this and understands the small risk associated with a delay in diagnosis. Symptoms include 10/03 , incomplete emptying, weak stream, straining, nocturia, x 2, and are worsening 01/31 better stream, nocturia x1, and are improving. Overall symptoms are moderate. Therapeutic plan will be continued surveillance Erectile dysfunction Failed daily tadalafil Prior discussion about penile injection [facility] Medical History COVID-19 vaccine series completed Impaired glucose tolerance Osteoarthritis of left hip Renal calculi Obesity (BMI 30-39.9) Erectile dysfunction BPH (benign prostatic hyperplasia) Lumbar degenerative disc disease Peripheral neuropathy PSA elevation Hypercholesterolemia Hypertension GERD (gastroesophageal reflux disease) Osteoarthritis Surgical History Status post total left knee replacement History of total right hip replacement History of esophagogastroduodenoscopy (EGD) H/O colonoscopy Hx of blepharoplasty History of circumcision History of lithotripsy History of repair of rotator cuff Family History Father Lung cancer Mother Acute CVA (cerebrovascular accident) Diabetes Hypertension CVD (cardiovascular disease) Maternal Uncle Myocardial infarction Social History Housing: House Are you a primary career based intervention coordinator to a significant other at home: No Do you presently have visiting nurse or other home services: No Alcohol intake: current Alcohol intake frequency: does not drink Patient Tobacco Use Status: Never used Tobacco e-Cigarette/Vaping Use: Never Used Second Hand Smoke Exposure: No service: No Current occupational status: retired Current occupation: Left handed Cognitive needs: No Hearing needs: No Vision needs: No Review of Systems Const Denies chills and Denies fever(s) Card Reports no additional complaints and Denies syncope Resp Denies cough GI Denies abdominal pain and Denies heartburn Reports as per HPI and Denies change in libido Neuro Denies syncope Psych Denies change in libido Endo Denies change in libido Physical Exam Const General: cooperative, healthy appearing, comfortable and no acute distress Orientation/consciousness: patient oriented x3 HEENT Face and sinus: Yes normal facial exam Mouth: moist mucous membranes Neck Neck: Yes normal visual inspection, Yes full ROM and Yes trachea midline Chest Chest palpation & inspection: normal inspection of the chest Resp Effort & Inspection: normal respiratory effort, able to speak in complete sentences and no respiratory distress GI Inspection: Yes normal to inspection Back/Spine/Pelvis Cervical Spine: normal cervical lordosis Thoracic/Lumbar Spine: thoracic and lumbar spine normal to inspection Skin General skin exam: no rashes or lesions noted Neuro General: patient oriented x3, gait normal, tone normal and moves all extremities Extrem General: Yes normal to inspection and Yes capillary refill normal Assessment & Plan Assessment & Plan (1) BPH (benign prostatic hyperplasia): Code(s): N40.0 - Benign prostatic hyperplasia without lower urinary tract symptoms Qualifiers: Lower urinary tract symptom presence: symptoms present Lower urinary tract symptom detail: urinary frequency Qualified Code(s): N40.1 - Benign prostatic hyperplasia with lower urinary tract symptoms; R35.0 - Frequency of micturition (2) Elevated PSA: Code(s): R97.20 - Elevated prostate specific antigen [PSA] Plan Twelve month follow-up PSA Orders: Orders Prostate Specific Antigen 364 Days N40.1 - Benign prostatic hyperplasia with lower urinary tract symptoms, R35.0 - Frequency of micturition Patient Instructions: Imaging studies, laboratory and physical exam results were discussed and reviewed in detail. No major barriers to patient understanding were identified. An opportunity to ask questions regarding the treatment plan was provided. All questions were answered. The patient expressed understanding and agreement with the above treatment plan. The patient is aware they should contact our office by phone for worsening of their current condition or the appearance of new urologic symptoms. Compliance is encouraged with any medications and followup testing that is ordered. It is a privilege to participate in the urologic care of your patient. If you have any questions or concerns regarding treatment for the above conditions, or other urologic issues, please do not hesitate to contact me. The office telephone contact is [phone]. This note is constructed using voice recognition software. While every effort has been made to ensure accuracy mud analysis supervisor errors may have been included. Yours sincerely, Dr Orlando Linn MD, [facility] - Urology Providers of Expert, Compassionate Care for the Genitourinary System Coding Level of Care Code Est Pt Level 4 (39299) Diagnoses Benign prostatic hyperplasia with urinary frequency N40.1; R35.0 Lower urinary tract symptom presence: symptoms present Lower urinary tract symptom detail: urinary frequency Elevated PSA R97.20
== END 2023-09-22 10:04 | disposition home or self-care (01) ==
PROVIDERS: Visit Provider Urology
DX: N40.1 Benign prostatic hyperplasia with lower urinary tract symptoms (principal); R35.0 Frequency of micturition; R97.20 Elevated prostate specific antigen [PSA]
CPT/HCPCS: 99214

== ENCOUNTER → 2023-09-22 09:29 | Outpatient (BNVA) | payer MEDICARE, SELFPAY | PROVIDERS: Visit Provider Urology | DX: N40.1 Benign prostatic hyperplasia with lower urinary tract symptoms (principal); R35.0 Frequency of micturition; R97.20 Elevated prostate specific antigen [PSA] | CPT/HCPCS: 99212 ==

== ENCOUNTER 2023-12-10 06:14 | Outpatient (REF) | payer MEDICARE, SELFPAY ==
[2023-12-10 06:24] LABS: MANUAL DIFF FLAG NO
[2023-12-10 07:50] LABS: Basophils Absolute Auto 0.1 X10*3/uL (0.0-0.2); Basophils Percent Auto 0.7 % (0-2); Eosinophils Absolute Auto 0.2 X10*3/uL (0.0-0.4); Eosinophils Percent Auto 2.5 % (0-4); Hematocrit 41.8 % (42.0-52.0); Hemoglobin 14.5 g/dl (14.0-18.0); Imm Gran Abs Auto 0.04 X10*3/uL (0.00-0.03); Imm Gran Pct Auto 0.6 % (0.0-0.4); Lymphocytes Percent Auto 28.3 % (20-40); Mean Corpuscular HGB Conc 34.7 g/dl (31.0-36.0); Mean Corpuscular Hemoglobin 30.9 pg (27.0-33.0); Mean Corpuscular Volume 88.9 fL (80.0-98.0); Mean Platelet Volume 10.9 fL (9.4-12.4); Monocytes Absolute Auto 0.8 X10*3/uL (0.1-1.2); Monocytes Percent Auto 11.1 % (2-11); Neutrophils Absolute Auto 3.9 x10*3/uL (2.0-8.3); Neutrophils Percent Auto 56.8 % (45-73); Platelet Count 247 X10*3/uL (160-400); Red Cell Distribution Width 13.3 % (11.0-16.0); White Blood Count 6.9 X10*3/uL (4.8-10.8)
[2023-12-10 08:23] LABS: Alanine Aminotransferase 37 U/L (0-40); Alkaline Phosphatase 112 U/L (39-117); Anion Gap 12 (12-20); Aspartate Amino Transferase 34 U/L (5-37); Bilirubin Total 1.2 mg/dL (0.0-1.0); Blood Urea Nitrogen 15 mg/dL (9-16); Calcium 9.1 mg/dL (8.4-10.2); Carbon Dioxide 27 mmol/L (22-29); Chloride 105 mmol/L (96-108); Cholesterol 180 mg/dL (<200); Estimated Glomerular Filt Rate > 60; Glucose Random 119 mg/dL (60-115); HDL Cholesterol 33 mg/dL (>40); LDL Cholesterol Calculated 127 mg/dL (<100); Potassium 3.7 mmol/L (3.3-5.1); Sodium 140 mmol/L (135-145); Total Protein 6.5 g/dL (6.5-8.0); Triglycerides 102 mg/dL (<150)
[2023-12-10 08:44] LABS: Free T4 (Free Thyroxine) 0.99 ng/dL (0.71-1.85); Thyroid Stimulating Hormone 1.33 uIU/mL (0.32-4.0)
[2023-12-10 09:01] LABS: Folate 13.7 ng/mL (> or = 4.0); Vitamin B12 700 pg/mL (200-900)
== END 2023-12-10 06:15 | disposition home or self-care (01) ==
LOC: HO.LAB 06:14
PROVIDERS: PCP Internal Medicine; Visit Provider Internal Medicine
DX: I10 Essential (primary) hypertension (principal); E78.00 Pure hypercholesterolemia, unspecified
CPT/HCPCS: 36415; 80053; 80061; 82607; 82746; 84439; 84443; 85025

== ENCOUNTER 2023-12-14 16:02 | Outpatient (AMB) | payer MEDICARE, SELFPAY ==
[2023-12-14 16:05] VITALS: BP 110/70; PULSE 85; O2SAT 98; BMI 34.4
--- NOTE | 2023-12-14 16:05 | A.OFFPC_ITS ---
Vital Signs 12/14/23 16:05 Height 5 ft 10 in Weight 240 lb BMI 34.4 BP 110/70 Blood Pressure Location Lt brachial Position Sitting Pulse 85 Pulse Source Pulse Oximeter Pulse Oximetry (%) 98 Oxygen Delivery Method Room Air Intake Visit Reasons: Annual physical, rescheduled from 07/28 Utilization Management Um Nurse Required: No Commission Associate: Not Required per policy Accompanied by: Self / Same As Patient Allergies codeine [Codeine] Adverse Reaction (Intermediate, Verified 12/14/23 16:06) hallucinations (years ago)-has had since without reaction Medication List - Last Reconciled 12/14/23 by Cesar Sanchez MD amlodipine 2.5 mg PO DAILY ascorbate calcium (vitamin C) 500 mg PO DAILY blood pressure monitor (Blood Pressure Kit) As directed cetirizine (Allergy Relief (cetirizine)) 10 mg PO DAILY cholecalciferol (vitamin D3) 50 mcg PO DAILY finasteride 5 mg PO .QOD lisinopril-hydrochlorothiazide 20-12.5 mg 1 tab PO BID 90 days metoprolol succinate ER 150 mg (1.5 x 100 mg) PO DAILY 90 days [id number]-SN-lycopen-lutein 0.4 mg-300 mcg- 250 mcg (Centrum Silver) 1 tab PO DAILY omeprazole 20 mg PO DAILY 90 days tamsulosin 0.4 mg PO BEDTIME vitamin E 200 units PO DAILY Tobacco use date assessed: 12/14/23 Fall risk assessment: No Falls in past year Last assessed Fall Risk: 12/14/23 Dental Screening Dental Screen Date: 12/14/23 Did you have a dental visit in the last 12 months?: Yes Did you have a dental problem in the last 6 months where you did not have access to dental care?: No Was dental information given to patient?: Patient has dentist HPI Annual physical, rescheduled from 07/28 HPI Details 73-year-old obese male with hypertension GERD hypercholesterolemia BPH impaired glucose tolerance last seen in April 2023 patient is here for physical exam. Patient's last colon test was September 2015. Patient follows up with urology seen in September 2023 monitoring PSA. L upper lid need surgery December 23, 2023 [facility] Medical History COVID-19 vaccine series completed Impaired glucose tolerance Osteoarthritis of left hip Renal calculi Obesity (BMI 30-39.9) Erectile dysfunction BPH (benign prostatic hyperplasia) Lumbar degenerative disc disease Peripheral neuropathy PSA elevation Hypercholesterolemia Hypertension GERD (gastroesophageal reflux disease) Osteoarthritis Surgical History Status post total left knee replacement History of total right hip replacement History of esophagogastroduodenoscopy (EGD) H/O colonoscopy Hx of blepharoplasty History of circumcision History of lithotripsy History of repair of rotator cuff Family History Father Lung cancer Mother Acute CVA (cerebrovascular accident) Diabetes Hypertension CVD (cardiovascular disease) Maternal Uncle Myocardial infarction Social History (Updated 12/14/23 @ 17:03 by Cesar Sanchez MD) Housing: House Are you a primary manager home healthcare to a significant other at home: No Do you presently have visiting nurse or other home services: No Alcohol intake: former Patient Tobacco Use Status: Never used Tobacco e-Cigarette/Vaping Use: Never Used Second Hand Smoke Exposure: No service: No Current occupational status: retired Current occupation: Left handed Cognitive needs: No Hearing needs: No Vision needs: No Questionnaire PHQ-9 Over the last 2 weeks, how often have you been bothered by any of the following problems? 1. Little interest or pleasure in doing things: not at all 2. Feeling down, depressed, or hopeless: not at all 3. Trouble falling or staying asleep, or sleeping too much: not at all 4. Feeling tired or having little energy: not at all 5. Poor appetite or overeating: not at all 6. Feeling bad about yourself - or that you are a failure or have let yourself or your family down: not at all 7. Trouble concentrating on things, such as reading the newspaper or watching television: not at all 8. Moving or speaking so slowly that other people could have noticed. Or the opposite - being so fidgety or restless that you have been moving around a lot more than usual: not at all 9. Thoughts that you would be better off or of hurting yourself in some way: not at all Total score: 0 Source: Developed by Drs. Auqilino Dyson, Tess B.W. Wade Silva and colleagues, with an educational summer from [employer] Thrive Questionnaire Date Thrive assessed: 12/14/23 I am a: Patient What is your living situation today?: I have a steady place to live Within the past 12 months, did the food you bought not last and you didn't have the money to get more?: Never true Within the past 12 months, did you worry whether your food would run out before you got money to buy more?: Never true Do you have trouble paying for medicines?: No Do you have trouble getting transportation to medical appointments?: No Do you have trouble paying your heating and electricity bill?: No Do you have trouble taking care of your child, family member or friend?: No Do you have trouble with day-to-day activities such as bathing, preparing meals, shopping, managing finances, etc.?: No Are you currently unemployed and looking for a job?: No Are you interested in more education?: No Please select the resources that you would like help with: None THRIVE Score: 0 AUDIT C Alcohol Use Questionnaire (AUDIT-C) 1. How often do you have a drink containing alcohol?: Never 2. How many drinks containing alcohol do you have on a typical day when you are drinking?: 1 or 2 3. How often do you have six or more drinks on one occasion?: Never Total Score: 0 SEVERIANO-7 AMB Questionnaire SEVERIANO-7 Date SEVERIANO - 7 assessed: 12/14/23 Feeling nervous, anxious, or on edge: 0 = Not at all Not being able to stop or control worryin = Not at all Worrying too much about different things: 0 = Not at all Trouble relaxin = Not at all Being so restless that it is hard to sit still: 0 = Not at all Becoming easily annoyed or irritable: 0 = Not at all Feeling afraid as if something awful might happen: 0 = Not at all Total SEVERIANO-7 score (0-4 normal; 5-9 mild; 10-14 moderate; 15-21 severe): 0 Source: Developed by Drs. Aquilino Dyson, Wade Smiley and colleagues, with an educational summer from [employer] Review of Systems Const Denies poor appetite and Denies weakness Eyes Denies no additional complaints ENT Reports Normal hearing present, Denies dizziness, Denies nasal congestion, Denies tinnitus and Denies sore throat Card Denies chest pain, Denies syncope, Denies rapid heart rate and Denies dyspnea Resp Denies cough and Denies dyspnea GI Denies change in stool character, Reports constipation, Denies diarrhea, Denies nausea and Denies vomiting Denies dysuria and Denies urinary frequency Neuro Reports Normal hearing present, Denies confusion, Denies dizziness, Denies syncope and Denies weakness Psych Denies confusion Physical exam (Primary Care) Vital Signs: Last Vital Signs Pulse 85 12/14/23 16:05 BP 110/70 12/14/23 16:05 Pulse Ox 98 12/14/23 16:05 Oxygen Delivery Method Room Air 12/14/23 16:05 BMI result Body Mass Index 34.4 Tobacco/Smoking Status: Tobacco use Status Tobacco use date assessed 12/14/23 12/14/23 16:07 Patient Tobacco Use Status Never used Tobacco 12/14/23 16:07 e-Cigarette/Vaping Use Never Used 12/14/23 16:07 PHQ-9: PHQ-9 Score PHQ-9: Total score 0 12/14/23 16:29 Thrive Assessment: Date of Thrive Assessment Date Thrive assessed 12/14/23 12/14/23 16:07 Const General: No confusion Orientation/consciousness: No confusion HENMT Head: Yes normocephalic Ears: external ears normal and TM's normal bilaterally Face and sinus: Yes normal facial exam Mouth: moist mucous membranes Throat: Yes tonsils normal Eyes Conjunctivae: conjunctivae normal Pupils: Equal, round and reactive pupils present and Pupil accommodation reflex normal Direct Ophthalmoscopy: normal light reflex Neck Neck: No lymphadenopathy Thyroid: Thyroid normal Chest Chest palpation & inspection: normal inspection of the chest Resp Effort & Inspection: normal respiratory effort and no audible wheezes Auscultation: clear to auscultation bilaterally, no crackles, no wheezes and lung sounds not diminished Cardio Rate: regular rate Rhythm: regular rhythm Peripheral pulses: radial pulses present and dorsalis pedis present GI Other: Guaiac negative stools prostate enlarged Palpation (GI): no masses Auscultation: normal bowel sounds and normoactive bowel sounds Male General Exam: Yes normal external exam Skin General skin exam: no rashes or lesions noted Rashes: no rashes Neuro General: No confusion Cranial nerves: Yes Equal, round and reactive pupils present and Yes Normal hearing present Cognition (Neuro): normal cognition Gait exam (Neuro): Normal gait present Motor exam (neuro): 5/5 motor strength present throughout Deep tendon reflexes (DTR's): Right brachioradialis reflex intensity grade: 2+, Left brachioradialis reflex intensity grade: 2+, Right patellar reflex intensity grade: 2+ and Left patellar reflex intensity grade: 2+ Extrem General: No edema Assessment and Plan Assessment & Plan (1) Annual physical exam: Code(s): Z00.00 - Encounter for general adult medical examination without abnormal findings (2) Obesity (BMI 30-39.9): Code(s): E66.9 - Obesity, unspecified Plan: Diet and exercise. Discussed about the weight as a problem (3) BPH (benign prostatic hyperplasia): Code(s): N40.0 - Benign prostatic hyperplasia without lower urinary tract symptoms Qualifiers: Lower urinary tract symptom presence: symptoms present Lower urinary tract symptom detail: urinary frequency Qualified Code(s): N40.1 - Benign prostatic hyperplasia with lower urinary tract symptoms; R35.0 - Frequency of micturition Plan: Patient follows up with urology on finasteride 5 mg once a day tamsulosin 0.4 mg once a day (4) Hypertension: Code(s): I10 - Essential (primary) hypertension Qualifiers: Hypertension type: essential hypertension Qualified Code(s): I10 - Essential (primary) hypertension Plan: Continue with blood pressure medication. Decrease salt intake and exercise patient on metoprolol 150 mg once a day lisinopril hydrochlorothiazide 2012.5 mg twice a day amlodipine 2.5 mg once a day (5) Hypercholesterolemia: Code(s): E78.00 - Pure hypercholesterolemia, unspecified Plan: Avoid fried foods, chicken skin, eggs, butter margarine, pastries and meat. Be it pork or beef they have a lot of cholesterol LDL goal of less than 130 and triglyceride of less than 150. Diet controlled (6) GERD (gastroesophageal reflux disease): Code(s): K21.9 - Gastro-esophageal reflux disease without esophagitis Qualifiers: Esophagitis presence: without esophagitis Qualified Code(s): K21.9 - Gastro-esophageal reflux disease without esophagitis Plan: Avoid the foods that causes that usually spicy foods, tomato products, juices, coffee, soda and foods that your sensitive to. After eating do not lie down, allow 3-4 hours before in lie down. And keep the head of bed above 30 degrees to avoid the acid from going up. (7) Impaired glucose tolerance: Code(s): R73.02 - Impaired glucose tolerance (oral) Plan: Decrease the amount of carbohydrate intake, pasta, bread, rice and potatoes are all sugar and that is aside from all the sweet stuff, remember that fruits are good but they are Sweet also. (8) Dermatochalasis of both eyelids: Code(s): H02.833 - Dermatochalasis of right eye, unspecified eyelid; H02.836 - Dermatoc halasis of left eye, unspecified eyelid Orders: Referrals Plastic Surgery Referral H02.833 - Dermatochalasis of right eye, unspecified eyelid, H02.836 - Dermatochalasis of left eye, unspecified eyelid Coding Level of Care Code Est Pt Prev Care >65y(52198) Diagnoses Annual physical exam Z00.00 Obesity (BMI 30-39.9) E66.9 Benign prostatic hyperplasia with urinary frequency N40.1; R35.0 Lower urinary tract symptom presence: symptoms present Lower urinary tract symptom detail: urinary frequency Essential hypertension I10 Hypertension type: essential hypertension Hypercholesterolemia E78.00 Gastroesophageal reflux disease without esophagitis K21.9 Esophagitis presence: without esophagitis Impaired glucose tolerance R73.02 Dermatochalasis of both eyelids H02.833; H02.836
== END 2023-12-14 17:18 | disposition home or self-care (01) ==
PROVIDERS: PCP Internal Medicine; Visit Provider Internal Medicine
DX: Z00.00 Encounter for general adult medical examination without abnormal findings (principal); I10 Essential (primary) hypertension; E66.9 Obesity, unspecified; Z68.34 Body mass index [BMI] 34.0-34.9, adult; N40.1 Benign prostatic hyperplasia with lower urinary tract symptoms; R35.0 Frequency of micturition; E78.00 Pure hypercholesterolemia, unspecified; R73.02 Impaired glucose tolerance (oral); H02.833 Dermatochalasis of right eye, unspecified eyelid; H02.836 Dermatochalasis of left eye, unspecified eyelid
CPT/HCPCS: 99397

== ENCOUNTER 2023-12-31 11:18 | Outpatient (AMB) | payer MEDICARE, SELFPAY ==
--- NOTE | 2023-12-31 11:04 | MHC.PC.OV ---
Vital Signs 12/31/23 11:06 Height 5 ft 10 in Weight 239 lb BMI 34.3 BP 126/72 Blood Pressure Location Lt brachial Position Sitting Pulse 70 Pulse Source Pulse Oximeter Pulse Oximetry (%) 96 Oxygen Delivery Method Room Air Intake Visit Reasons: Pre op For Eye Lid Surg On december Intake Note: Patient is here for a Pre-op for Bilateral upper lid external levator resection scheduled with Dr. Fine on 01/13/2024 Allergies codeine [Codeine] Adverse Reaction (Intermediate, Verified 12/31/23 11:06) hallucinations (years ago)-has had since without reaction Medication List - Last Reconciled 12/31/23 by Cesar Sanchez MD amlodipine 2.5 mg PO DAILY ascorbate calcium (vitamin C) 500 mg PO DAILY blood pressure monitor (Blood Pressure Kit) As directed cetirizine (Allergy Relief (cetirizine)) 10 mg PO DAILY cholecalciferol (vitamin D3) 50 mcg PO DAILY finasteride 5 mg orally M,W, F; lisinopril-hydrochlorothiazide 20-12.5 mg 1 tab PO BID 90 days metoprolol succinate ER 150 mg (1.5 x 100 mg) PO DAILY 90 days lsvkucxu-gpe-QQ-lycopen-lutein 0.4 mg-300 mcg- 250 mcg (Centrum Silver) 1 tab PO DAILY omeprazole 20 mg PO DAILY 90 days tamsulosin 0.4 mg PO BEDTIME vitamin E 200 units PO DAILY Tobacco use date assessed: 12/31/23 Fall risk assessment: No Falls in past year Last assessed Fall Risk: 12/31/23 Dental Screening Dental Screen Date: 12/14/23 HPI Pre op For Eye Lid Surg On december HPI Details 73-year-old obese male with hypertension hypercholesterolemia GERD impaired glucose tolerance and BPH comes in for preoperative evaluation for dermatochalasis of both eyelids. Patient was last seen in November 2023. [facility] Medical History (Updated 12/31/23 @ 11:57 by Cesar Sanchez MD) Preop cardiovascular exam COVID-19 vaccine series completed Impaired glucose tolerance Osteoarthritis of left hip Renal calculi Obesity (BMI 30-39.9) Erectile dysfunction BPH (benign prostatic hyperplasia) Lumbar degenerative disc disease Peripheral neuropathy PSA elevation Hypercholesterolemia Hypertension GERD (gastroesophageal reflux disease) Osteoarthritis Surgical History Status post total left knee replacement History of total right hip replacement History of esophagogastroduodenoscopy (EGD) H/O colonoscopy Hx of blepharoplasty History of circumcision History of lithotripsy History of repair of rotator cuff Family History Father Lung cancer Mother Acute CVA (cerebrovascular accident) Diabetes Hypertension CVD (cardiovascular disease) Maternal Uncle Myocardial infarction Social History (Updated 12/31/23 @ 12:01 by Cesar Sanchez MD) Housing: House Are you a primary career resource specialist to a significant other at home: No Do you presently have visiting nurse or other home services: No Alcohol intake: current Comment: once q 2-3 months 2 drinks Patient Tobacco Use Status: Never used Tobacco e-Cigarette/Vaping Use: Never Used Second Hand Smoke Exposure: No service: No Current occupational status: retired Current occupation: Left handed Cognitive needs: No Hearing needs: No Vision needs: No Questionnaire Thrive Questionnaire Date Thrive assessed: 12/14/23 AUDIT C Alcohol Use Questionnaire (AUDIT-C) 1. How often do you have a drink containing alcohol?: Never 2. How many drinks containing alcohol do you have on a typical day when you are drinking?: 1 or 2 3. How often do you have six or more drinks on one occasion?: Never Total Score: 0 SEVERIANO-7 AMB Questionnaire SEVERIANO-7 Date SEVERIANO - 7 assessed: 12/14/23 Source: Developed by Drs. Aquilino Dyson, Tess Silva, Wade Palmer and colleagues, with an educational summer from [employer]. Review of Systems Const Denies poor appetite and Denies weakness Eyes Denies no additional complaints ENT Reports Normal hearing present, Denies dizziness, Denies nasal congestion, Denies tinnitus and Denies sore throat Card Denies chest pain, Denies syncope, Denies rapid heart rate and Denies dyspnea Resp Denies cough and Denies dyspnea GI Denies change in stool character, Reports constipation, Denies diarrhea, Denies nausea and Denies vomiting Denies dysuria and Denies urinary frequency Neuro Reports Normal hearing present, Denies confusion, Denies dizziness, Denies syncope and Denies weakness Psych Denies confusion Physical exam (Primary Care) Vital Signs: Last Vital Signs Pulse 70 12/31/23 11:06 BP 126/72 12/31/23 11:06 Pulse Ox 96 12/31/23 11:06 Oxygen Delivery Method Room Air 12/31/23 11:06 BMI result Body Mass Index 34.3 Tobacco/Smoking Status: Tobacco use Status Tobacco use date assessed 12/31/23 12/31/23 11:06 Patient Tobacco Use Status Never used Tobacco 12/31/23 11:06 e-Cigarette/Vaping Use Never Used 12/31/23 11:06 Thrive Assessment: Date of Thrive Assessment Date Thrive assessed 12/14/23 12/31/23 11:06 Const General: No confusion Orientation/consciousness: No confusion Eyes Conjunctivae: conjunctivae normal Resp Auscultation: clear to auscultation bilaterally Cardio Rate: regular rate Rhythm: regular rhythm GI Inspection: Yes normal to inspection Neuro General: No confusion Cranial nerves: Yes Normal hearing present Extrem General: Yes normal to inspection and No edema Assessment and Plan Assessment & Plan (1) Dermatochalasis of both eyelids: Code(s): H02.833 - Dermatochalasis of right eye, unspecified eyelid; H02.836 - Dermatochalasis of left eye, unspecified eyelid Plan: Planned surgery under Ophthalmology (2) Obesity (BMI 30-39.9): Code(s): E66.9 - Obesity, unspecified Plan: Diet and exercise (3) Hypertension: Code(s): I10 - Essential (primary) hypertension Qualifiers: Hypertension type: essential hypertension Qualified Code(s): I10 - Essential (primary) hypertension Plan: Continue with blood pressure medication. Decrease salt intake and exercise patient is on metoprolol 150 mg once a day lisinopril hydrochlorothiazide 20/12.5 mg twice a day and amlodipine 2.5 mg once a day (4) Hypercholesterolemia: Code(s): E78.00 - Pure hypercholesterolemia, unspecified Plan: Avoid fried foods, chicken skin, eggs, butter margarine, pastries and meat. Be it pork or beef they have a lot of cholesterol diet controlled (5) GERD (gastroesophageal reflux disease): Code(s): K21.9 - Gastro-esophageal reflux disease without esophagitis Qualifiers: Esophagitis presence: without esophagitis Qualified Code(s): K21.9 - Gastro-esophageal reflux disease without esophagitis Plan: Avoid the foods that causes that usually spicy foods, tomato products, juices, coffee, soda and foods that your sensitive to. After eating do not lie down, allow 3-4 hours before in lie down. And keep the head of bed above 30 degrees to avoid the acid from going up. On omeprazole 20 mg once a day (6) BPH (benign prostatic hyperplasia): Code(s): N40.0 - Benign prostatic hyperplasia without lower urinary tract symptoms Qualifiers: Lower urinary tract symptom detail: urinary frequency Lower urinary tract symptom presence: symptoms present Qualified Code(s): N40.1 - Benign prostatic hyperplasia with lower urinary tract symptoms; R35.0 - Frequency of micturition Plan: Patient is on finasteride 5 mg every other day with tamsulosin 0.4 mg once a day (7) Impaired glucose tolerance: Code(s): R73.02 - Impaired glucose tolerance (oral) Plan: Decrease the amount of carbohydrate intake, pasta, bread, rice and potatoes are all sugar and that is aside from all the sweet stuff, remember that fruits are good but they are Sweet also. (8) Preop exam for internal medicine: Code(s): Z01.818 - Encounter for other preprocedural examination Orders: Orders ECG 12 lead EKG Today Z01.818 - Encounter for other preprocedural examination Patient Instructions: With age above 70 patient belongs to the intermediate risk for any cardiac complication. Otherwise with a low risk procedure no further workup needed at this time and may proceed with the contemplated procedure. Patient was advised to take the blood pressure medications metoprolol 150 mg once a day, lisinopril hydrochlorothiazide 20/12.5 mg p.o. twice a day amlodipine 2.5 mg once a day. Patient was also advised to take omeprazole 20 mg once a day. Thank you very much for letting me participate the care of this patient. Coding Level of Care Code Est Pt Level 4 (61912) Diagnoses Dermatochalasis of both eyelids H02.833; H02.836 Obesity (BMI 30-39.9) E66.9 Essential hypertension I10 Hypertension type: essential hypertension Hypercholesterolemia E78.00 Gastroesophageal reflux disease without esophagitis K21.9 Esophagitis presence: without esophagitis Benign prostatic hyperplasia with urinary frequency N40.1; R35.0 Lower urinary tract symptom detail: urinary frequency Lower urinary tract symptom presence: symptoms present Impaired glucose tolerance R73.02 Preop exam for internal medicine Z01.815
[2023-12-31 11:06] VITALS: BP 126/72; PULSE 70; O2SAT 96; BMI 34.3
== END 2023-12-31 13:21 | disposition home or self-care (01) ==
PROVIDERS: PCP Internal Medicine; Visit Provider Internal Medicine
DX: H02.833 Dermatochalasis of right eye, unspecified eyelid (principal); H02.836 Dermatochalasis of left eye, unspecified eyelid; I10 Essential (primary) hypertension; E78.00 Pure hypercholesterolemia, unspecified; K21.9 Gastro-esophageal reflux disease without esophagitis; N40.1 Benign prostatic hyperplasia with lower urinary tract symptoms; R35.0 Frequency of micturition; R73.02 Impaired glucose tolerance (oral); Z01.818 Encounter for other preprocedural examination
CPT/HCPCS: 99214

== ENCOUNTER → 2023-12-31 12:16 | Outpatient (REF) | payer MEDICARE, SELFPAY ==
--- NOTE | 2023-12-31 12:20 | ECG_ITS ---
Test Reason : PREOP Blood Pressure : / mmHG Vent. Rate : 062 BPM Atrial Rate : 062 BPM P-R Int : 144 ms QRS Dur : 094 ms QT Int : 394 ms P-R-T Axes : 032 -21 015 degrees QTc Int : 399 ms Normal sinus rhythm Normal ECG When compared with ECG of 03-OCT-2021 07:13, Vent. rate has decreased BY 38 BPM QT has shortened Referred By: Cesar Sanchez Electronically Signed By:ARTI ALCANTARA MD
== END ==
LOC: HO.CARD 12:16
PROVIDERS: PCP Internal Medicine; Visit Provider Internal Medicine
DX: Z01.818 Encounter for other preprocedural examination (principal)
CPT/HCPCS: 93005

== ENCOUNTER → 2023-12-31 12:20 | Outpatient (BNV) | payer MEDICARE, SELFPAY | PROVIDERS: PCP Internal Medicine; Visit Provider Internal Medicine Cardiovascular Disease | DX: I10 Essential (primary) hypertension (principal); E78.00 Pure hypercholesterolemia, unspecified; Z01.810 Encounter for preprocedural cardiovascular examination | CPT/HCPCS: 93010 ==

== ENCOUNTER 2024-06-28 10:38 | Outpatient (AMB) | payer MEDICARE, SELFPAY ==
--- NOTE | 2024-06-28 10:45 | A.OFFPC_ITS ---
Vital Signs 06/28/24 10:46 Height 5 ft 10 in Weight 235 lb BMI 33.7 BP 142/78 H Blood Pressure Location Lt brachial Position Sitting Pulse 81 Pulse Source Pulse Oximeter Pulse Oximetry (%) 98 Oxygen Delivery Method Room Air Intake Visit Reasons: HTN, BPH Allergies codeine [Codeine] Adverse Reaction (Intermediate, Verified 06/28/24 10:46) hallucinations (years ago)-has had since without reaction Tobacco use date assessed: 12/31/23 Fall risk assessment: No Falls in past year Last assessed Fall Risk: 06/28/24 Dental Screening Dental Screen Date: 12/14/23 HPI HTN, BPH HPI Details 73-year-old obese male with hypertension hypercholesterolemia GERD BPH impaired glucose tolerance last seen for preoperative evaluation for the eyelid surgery. 01/03/2024. Surgery was done by Dr. Alegria 2023. BP here is high but has the machine at home to monitor. hoarse but on coughing does get better. [facility] Medical History (Updated 02/29/24 @ 17:28 by Cesar Sanchez MD) Preop cardiovascular exam COVID-19 vaccine series completed Impaired glucose tolerance Osteoarthritis of left hip Renal calculi Obesity (BMI 30-39.9) Erectile dysfunction BPH (benign prostatic hyperplasia) Lumbar degenerative disc disease Peripheral neuropathy PSA elevation Hypercholesterolemia Hypertension GERD (gastroesophageal reflux disease) Osteoarthritis Surgical History Status post total left knee replacement History of total right hip replacement History of esophagogastroduodenoscopy (EGD) H/O colonoscopy Hx of blepharoplasty History of circumcision History of lithotripsy History of repair of rotator cuff Family History Father Lung cancer Mother Acute CVA (cerebrovascular accident) Diabetes Hypertension CVD (cardiovascular disease) Maternal Uncle Myocardial infarction Social History (Updated 12/31/23 @ 12:01 by Cesar Sanchez MD) Housing: House Are you a primary college and career counselor to a significant other at home: No Do you presently have visiting nurse or other home services: No Alcohol intake: current Comment: once q 2-3 months 2 drinks Patient Tobacco Use Status: Never used Tobacco Tobacco use type: Cigarette e-Cigarette/Vaping Use: Never Used Second Hand Smoke Exposure: No service: No Current occupational status: retired Current occupation: Left handed Cognitive needs: No Hearing needs: No Vision needs: No Questionnaire PHQ-9 Over the last 2 weeks, how often have you been bothered by any of the following problems? 1. Little interest or pleasure in doing things: not at all 2. Feeling down, depressed, or hopeless: not at all 3. Trouble falling or staying asleep, or sleeping too much: not at all 4. Feeling tired or having little energy: not at all 5. Poor appetite or overeating: not at all 6. Feeling bad about yourself - or that you are a failure or have let yourself or your family down: not at all 7. Trouble concentrating on things, such as reading the newspaper or watching television: not at all 8. Moving or speaking so slowly that other people could have noticed. Or the opposite - being so fidgety or restless that you have been moving around a lot more than usual: not at all 9. Thoughts that you would be better off or of hurting yourself in some way: not at all Total score: 0 Depression Screening Interpretation: Negative Depression Screening Done: Yes Source: Developed by Drs. Aquilino Dyson, Tess Silva, Wade Palmer and colleagues, with an educational summer from [employer]. Thrive Questionnaire Date Thrive assessed: 12/14/23 AUDIT C Alcohol Use Questionnaire (AUDIT-C) 1. How often do you have a drink containing alcohol?: Never 2. How many drinks containing alcohol do you have on a typical day when you are drinking?: 1 or 2 3. How often do you have six or more drinks on one occasion?: Never Total Score: 0 SEVERIANO-7 AMB Questionnaire SEVERIANO-7 Date SEVERIANO - 7 assessed: 12/14/23 Source: Developed by Drs. Aquilino Dyson, Wade Smiley and colleagues, with an educational summer from [employer]. Physical exam (Primary Care) Vital Signs: Last Vital Signs Pulse 81 06/28/24 10:46 BP 142/78 H 06/28/24 10:46 Pulse Ox 98 06/28/24 10:46 Oxygen Delivery Method Room Air 06/28/24 10:46 BMI result Body Mass Index 33.7 Tobacco/Smoking Status: Tobacco use Status Tobacco use date assessed 12/31/23 06/28/24 10:47 Patient Tobacco Use Status Never used Tobacco 06/28/24 10:47 Tobacco use type Cigarette 06/28/24 10:47 e-Cigarette/Vaping Use Never Used 06/28/24 10:47 PHQ-9: PHQ-9 Score PHQ-9: Total score 0 06/28/24 10:59 Depression Screening Interpretation: Negative Thrive Assessment: Date of Thrive Assessment Date Thrive assessed 12/14/23 06/28/24 10:47 Const General: alert; No acute distress Eyes Conjunctivae: conjunctivae normal Resp Auscultation: clear to auscultation bilaterally Cardio Rate: regular rate Rhythm: regular rhythm GI Inspection: Yes normal to inspection Extrem General: Yes normal to inspection and No edema Coding Level of Care Code Est Pt Level 4 (02505) Diagnoses Dermatochalasis of both eyelids H02.833; H02.836 Obesity (BMI 30-39.9) E66.9 Essential hypertension I10 Hypertension type: essential hypertension Hypercholesterolemia E78.00 Benign prostatic hyperplasia with urinary frequency N40.1; R35.0 Lower urinary tract symptom presence: symptoms present Lower urinary tract symptom detail: urinary frequency Assessment & Plan Assessment & Plan (1) Dermatochalasis of both eyelids: Comment: Dr. Fine Status post bilateral external levator resection ptosis repair [id number] Code(s): H02.833 - Dermatochalasis of right eye, unspecified eyelid; H02.836 - Dermatochalasis of left eye, unspecified eyelid Category: Medical Plan: Post surgery December 2023 (2) Obesity (BMI 30-39.9): Code(s): E66.9 - Obesity, unspecified Category: Medical Plan: Diet and exercise (3) Hypertension: Code(s): I10 - Essential (primary) hypertension Category: Medical Qualifiers: Hypertension type: essential hypertension Qualified Code(s): I10 - Essential (primary) hypertension Plan: Continue with blood pressure medication. Decrease salt intake and exercise takes amlodipine 2.5 mg once a day lisinopril hydrochlorothiazide metoprolol and amlodipine (4) Hypercholesterolemia: Code(s): E78.00 - Pure hypercholesterolemia, unspecified Category: Medical Plan: Avoid fried foods, chicken skin, eggs, butter margarine, pastries and meat. Be it pork or beef they have a lot of cholesterol LDL goal of less than 130 and triglyceride of less than 150 diet controlled. (5) BPH (benign prostatic hyperplasia): Code(s): N40.0 - Benign prostatic hyperplasia without lower urinary tract symptoms Category: Medical Qualifiers: Lower urinary tract symptom presence: symptoms present Lower urinary tract symptom detail: urinary frequency Qualified Code(s): N40.1 - Benign prostatic hyperplasia with lower urinary tract symptoms; R35.0 - Frequency of micturition Plan: Continue with tamsulosin and finasteride Orders: Orders Complete Blood Count Auto Diff 3 Months E78.00 - Pure hypercholesterolemia, unspecified Comprehensive Met. Panel 3 Months E78.00 - Pure hypercholesterolemia, unspecified Thyroid Stimulating Hormone 3 Months E78.00 - Pure hypercholesterolemia, unspecified Hemoglobin A1c 3 Months E78.00 - Pure hypercholesterolemia, unspecified Lipid Panel 3 Months E78.00 - Pure hypercholesterolemia, unspecified Vitamin B12 and Folate 3 Months E78.00 - Pure hypercholesterolemia, unspecified Free T4 (Free Thyroxine) 3 Months E78.00 - Pure hypercholesterolemia, unspecified
[2024-06-28 10:46] VITALS: BP 142/78; PULSE 81; O2SAT 98; BMI 33.7
== END 2024-06-28 11:46 | disposition home or self-care (01) ==
PROVIDERS: PCP Internal Medicine; Visit Provider Internal Medicine
DX: I10 Essential (primary) hypertension (principal); E78.00 Pure hypercholesterolemia, unspecified; E66.9 Obesity, unspecified; Z68.33 Body mass index [BMI] 33.0-33.9, adult; N40.1 Benign prostatic hyperplasia with lower urinary tract symptoms; R35.0 Frequency of micturition

== ENCOUNTER → 2024-06-28 10:38 | Outpatient (BNVA) | payer MEDICARE, SELFPAY | PROVIDERS: PCP Internal Medicine; Visit Provider Internal Medicine | DX: H02.833 Dermatochalasis of right eye, unspecified eyelid (principal); H02.836 Dermatochalasis of left eye, unspecified eyelid; E66.9 Obesity, unspecified; I10 Essential (primary) hypertension; E78.00 Pure hypercholesterolemia, unspecified; N40.1 Benign prostatic hyperplasia with lower urinary tract symptoms; R35.0 Frequency of micturition | CPT/HCPCS: 96127; 99212 ==

== ENCOUNTER 2024-08-07 09:52 | Outpatient (AMB) | payer MEDICARE, SELFPAY ==
--- NOTE | 2024-08-07 09:55 | A.OFFPC_ITS ---
Vital Signs 08/07/24 09:56 Height 5 ft 10 in Weight 236 lb 4 oz BMI 33.9 BP 132/70 Blood Pressure Location Lt brachial Position Sitting Pulse 88 Pulse Source Pulse Oximeter Pulse Oximetry (%) 93 Oxygen Delivery Method Room Air Intake Visit Reasons: cold Intake Note: Patient is here to follow up on Cold. Symptoms are running nose, yellow mucus, cough, congestion, no fever or chills. No covid test at home. Doorperson Or Luggage Porter Required: No Manager Statistical Programming: Not Required per policy Accompanied by: Self / Same As Patient Allergies codeine [Codeine] Adverse Reaction (Intermediate, Verified 08/07/24 10:26) hallucinations (years ago)-has had since without reaction Medication List - Last Reconciled 08/07/24 by Wilmer Rocha MD amlodipine 2.5 mg PO DAILY ascorbate calcium (vitamin C) 500 mg PO DAILY blood pressure monitor (Blood Pressure Kit) As directed cetirizine (Allergy Relief (cetirizine)) 10 mg PO DAILY cholecalciferol (vitamin D3) 50 mcg PO DAILY finasteride 5 mg orally M,W, F; 90 days lisinopril-hydrochlorothiazide 20-12.5 mg 1 tab PO BID 90 days metoprolol succinate ER 150 mg (1.5 x 100 mg) PO DAILY 90 days jekyochz-ich-BF-lycopen-lutein 0.4 mg-300 mcg- 250 mcg (Centrum Silver) 1 tab PO DAILY omeprazole 20 mg PO DAILY 90 days tamsulosin 0.4 mg PO BEDTIME vitamin E 200 units PO DAILY Tobacco use date assessed: 08/07/24 Fall risk assessment: No Falls in past year Last assessed Fall Risk: 08/07/24 Dental Screening Dental Screen Date: 12/14/23 HPI cold HPI Details Patient presents for a sick visit. Reporting symptoms of sinus congestion, sore throat and difficulty swallowing. Low-grade fever. No family member is sick. No recent travel. Patient reports symptoms of malaise and fatigue. [facility] Medical History (Updated 02/29/24 @ 17:28 by Cesar Sanchez MD) Preop cardiovascular exam COVID-19 vaccine series completed Impaired glucose tolerance Osteoarthritis of left hip Renal calculi Obesity (BMI 30-39.9) Erectile dysfunction BPH (benign prostatic hyperplasia) Lumbar degenerative disc disease Peripheral neuropathy PSA elevation Hypercholesterolemia Hypertension GERD (gastroesophageal reflux disease) Osteoarthritis Surgical History Status post total left knee replacement History of total right hip replacement History of esophagogastroduodenoscopy (EGD) H/O colonoscopy Hx of blepharoplasty History of circumcision History of lithotripsy History of repair of rotator cuff Family History Father Lung cancer Mother Acute CVA (cerebrovascular accident) Diabetes Hypertension CVD (cardiovascular disease) Maternal Uncle Myocardial infarction Social History Housing: House Are you a primary resident care provider to a significant other at home: No Do you presently have visiting nurse or other home services: No Alcohol intake: current Comment: once q 2-3 months 2 drinks Patient Tobacco Use Status: Never used Tobacco Tobacco use type: Cigarette e-Cigarette/Vaping Use: Never Used Second Hand Smoke Exposure: No service: No Current occupational status: retired Current occupation: Left handed Cognitive needs: No Hearing needs: No Vision needs: No Questionnaire Thrive Questionnaire Date Thrive assessed: 12/14/23 SEVREIANO-7 AMB Questionnaire SEVERIANO-7 Date SEVERIANO - 7 assessed: 12/14/23 Source: Developed by Drs. Aquilino Dyson, Tess Silva, Wade Palmer and colleagues, with an educational summer from [employer]. Physical exam (Primary Care) Vital Signs: Last Vital Signs Pulse 88 08/07/24 09:56 BP 132/70 08/07/24 09:56 Pulse Ox 93 08/07/24 09:56 Oxygen Delivery Method Room Air 08/07/24 09:56 BMI result Body Mass Index 33.9 Tobacco/Smoking Status: Tobacco use Status Tobacco use date assessed 08/07/24 08/07/24 10:05 Patient Tobacco Use Status Never used Tobacco 08/07/24 10:05 Tobacco use type Cigarette 08/07/24 10:05 e-Cigarette/Vaping Use Never Used 08/07/24 10:05 Thrive Assessment: Date of Thrive Assessment Date Thrive assessed 12/14/23 08/07/24 10:05 Const General: cooperative and healthy appearing Nutritional Appearance: well nourished Orientation/consciousness: patient oriented x3 Limitations: no limitations HENMT Head: Yes normal to inspection Eyes General: appearance normal, both eyes and all related structures Neck Neck: Yes normal visual inspection Chest Chest palpation & inspection: normal palpation of entire chest wall Resp Effort & Inspection: normal respiratory effort Neuro General: patient oriented x3 Coding Level of Care Code Est Pt Level 3 (25257) Complex EM visit Add On G2211 Diagnoses Upper respiratory tract infection J06.9 Assessment & Plan Assessment & Plan (1) Upper respiratory tract infection: Code(s): J06.9 - Acute upper respiratory infection, unspecified Plan: Antibiotics ordered. Increase fluid intake. Tylenol for aches and pains. If symptoms worsen, follow-up here for a recheck.
[2024-08-07 09:56] VITALS: BP 132/70; PULSE 88; O2SAT 93; BMI 33.9
== END 2024-08-07 10:25 | disposition home or self-care (01) ==
PROVIDERS: PCP Internal Medicine; Visit Provider Internal Medicine
DX: J06.9 Acute upper respiratory infection, unspecified (principal)

== ENCOUNTER → 2024-08-07 09:52 | Outpatient (BNVA) | payer MEDICARE, SELFPAY | PROVIDERS: PCP Internal Medicine; Visit Provider Internal Medicine | DX: J06.9 Acute upper respiratory infection, unspecified (principal) | CPT/HCPCS: 99212 ==

== ENCOUNTER 2024-09-20 06:46 | Outpatient (REF) | payer MEDICARE, SELFPAY ==
[2024-09-20 10:34] LABS: Prostate Specific Antigen 1.77 ng/mL (<0.05-4.0)
== END 2024-09-20 06:47 | disposition home or self-care (01) ==
LOC: HO.HMGCLDS 06:46
PROVIDERS: PCP Internal Medicine; Visit Provider Urology
DX: N40.1 Benign prostatic hyperplasia with lower urinary tract symptoms (principal); R35.0 Frequency of micturition; Z12.5 Encounter for screening for malignant neoplasm of prostate
CPT/HCPCS: 36415; 84153

== ENCOUNTER → 2024-09-22 09:17 | Outpatient (BNVA) | payer MEDICARE, SELFPAY | PROVIDERS: PCP Internal Medicine; Visit Provider Urology | DX: N40.1 Benign prostatic hyperplasia with lower urinary tract symptoms (principal); R35.0 Frequency of micturition; N52.9 Male erectile dysfunction, unspecified; R97.20 Elevated prostate specific antigen [PSA] | CPT/HCPCS: 51798; 81003; 99212 ==

== ENCOUNTER → 2024-09-22 09:17 | Outpatient (AMB) | payer MEDICARE, SELFPAY | END | disposition home or self-care (01) | PROVIDERS: PCP Internal Medicine; Visit Provider Urology | CPT/HCPCS: 99214; G2211 ==

== ENCOUNTER 2024-12-13 07:36 | Outpatient (REF) | payer MEDICARE, SELFPAY ==
[2024-12-13 10:01] LABS: MANUAL DIFF FLAG NO
[2024-12-13 10:10] LABS: Basophils Percent Auto 0.7 % (0-2); Eosinophils Absolute Auto 0.2 X10*3/uL (0.0-0.4); Eosinophils Percent Auto 2.6 % (0-4); Hematocrit 43.5 % (42.0-52.0); Hemoglobin 14.8 g/dl (14.0-18.0); Imm Gran Abs Auto 0.02 X10*3/uL (0.00-0.03); Imm Gran Pct Auto 0.3 % (0.0-0.4); Lymphocytes Absolute Auto 1.8 X10*3/uL (1.2-4.9); Lymphocytes Percent Auto 29.2 % (20-40); Mean Corpuscular Hemoglobin 30.5 pg (27.0-33.0); Mean Corpuscular Volume 89.5 fL (80.0-98.0); Mean Platelet Volume 10.8 fL (9.4-12.4); Monocytes Absolute Auto 0.6 X10*3/uL (0.1-1.2); Monocytes Percent Auto 9.4 % (2-11); Neutrophils Absolute Auto 3.6 x10*3/uL (2.0-8.3); Neutrophils Percent Auto 57.8 % (45-73); Platelet Count 227 X10*3/uL (160-400); Red Blood Count 4.86 X10*6/uL (4.60-5.80); Red Cell Distribution Width 13.2 % (11.0-16.0); White Blood Count 6.1 X10*3/uL (4.8-10.8)
[2024-12-13 10:16] LABS: Estimated Average Glucose 128 mg/dL; Hemoglobin A1C 166.3715 umol/L; Hemoglobin A1c % 6.1 % (<6.0); Total Hemoglobin (HGBA1C) 3870.0647 umol/L
[2024-12-13 11:03] LABS: Alanine Aminotransferase 39 U/L (0-40); Alkaline Phosphatase 106 U/L (39-117); Anion Gap 12 (12-20); Aspartate Amino Transferase 32 U/L (5-37); Bilirubin Total 1.4 mg/dL (0.0-1.0); Blood Urea Nitrogen 15 mg/dL (9-16); Calcium 9.2 mg/dL (8.4-10.2); Carbon Dioxide 27 mmol/L (22-29); Chloride 105 mmol/L (96-108); Cholesterol 197 mg/dL (<200); Estimated Glomerular Filt Rate > 60; Glucose Random 133 mg/dL (60-115); HDL Cholesterol 35 mg/dL (>40); LDL Cholesterol Calculated 136 mg/dL (<100); Potassium 3.9 mmol/L (3.3-5.1); Sodium 140 mmol/L (135-145); Total Protein 6.4 g/dL (6.5-8.0); Triglycerides 131 mg/dL (<150)
[2024-12-13 11:06] LABS: Folate 18.2 ng/mL (> or = 4.0); Vitamin B12 626 pg/mL (200-900)
[2024-12-13 11:10] LABS: Thyroid Stimulating Hormone 1.28 uIU/mL (0.32-4.0)
== END 2024-12-13 07:37 | disposition home or self-care (01) ==
LOC: HO.HMGCLDS 07:36
PROVIDERS: PCP Internal Medicine; Visit Provider Internal Medicine
DX: E78.00 Pure hypercholesterolemia, unspecified (principal); Z13.1 Encounter for screening for diabetes mellitus
CPT/HCPCS: 36415; 80053; 80061; 82607; 82746; 83036; 84439; 84443; 85025

== ENCOUNTER 2024-12-14 10:14 | Outpatient (AMB) | payer MEDICARE, SELFPAY ==
--- NOTE | 2024-12-14 10:17 | A.OFFPC_ITS ---
Vital Signs 12/14/24 10:18 Height 5 ft 8 in Weight 239 lb BMI 36.3 BP 124/88 Blood Pressure Location Lt brachial Position Sitting Pulse 79 Pulse Source Pulse Oximeter Pulse Oximetry (%) 95 Oxygen Delivery Method Room Air Intake Visit Reasons: annual exam Allergies codeine [Codeine] Adverse Reaction (Intermediate, Verified 12/14/24 10:18) hallucinations (years ago)-has had since without reaction Medication List - Last Reconciled 12/14/24 by Cesar Sanchez MD amlodipine 2.5 mg PO DAILY ascorbate calcium (vitamin C) 500 mg PO DAILY blood pressure monitor (Blood Pressure Kit) As directed cetirizine (Allergy Relief (cetirizine)) 10 mg PO DAILY cholecalciferol (vitamin D3) 50 mcg PO DAILY finasteride 5 mg orally M,W, F; 90 days lisinopril-hydrochlorothiazide 20-12.5 mg 1 tab PO BID 90 days metoprolol succinate ER 150 mg (1.5 x 100 mg) PO DAILY 90 days nktliyor-fjm-KW-lycopen-lutein 0.4 mg-300 mcg- 250 mcg (Centrum Silver) 1 tab PO DAILY omeprazole 20 mg PO DAILY 90 days tamsulosin 0.4 mg PO BEDTIME vitamin E 200 units PO DAILY Tobacco use date assessed: 12/14/24 Fall risk assessment: No Falls in past year Last assessed Fall Risk: 12/14/24 Dental Screening Dental Screen Date: 12/14/24 Did you have a dental visit in the last 12 months?: No Did you have a dental problem in the last 6 months where you did not have access to dental care?: No Was dental information given to patient?: Patient has dentist [facility] Medical History (Updated 12/14/24 @ 11:01 by Cesar Sanchez MD) Impaired glucose tolerance Preop cardiovascular exam COVID-19 vaccine series completed Osteoarthritis of left hip Renal calculi Obesity (BMI 30-39.9) Erectile dysfunction BPH (benign prostatic hyperplasia) Lumbar degenerative disc disease Peripheral neuropathy PSA elevation Hypercholesterolemia Hypertension GERD (gastroesophageal reflux disease) Osteoarthritis Surgical History Status post total left knee replacement History of total right hip replacement History of esophagogastroduodenoscopy (EGD) H/O colonoscopy Hx of blepharoplasty History of circumcision History of lithotripsy History of repair of rotator cuff Family History Father Lung cancer Mother Acute CVA (cerebrovascular accident) Diabetes Hypertension CVD (cardiovascular disease) Maternal Uncle Myocardial infarction Social History (Updated 12/14/24 @ 10:46 by Cesar Sanchez MD) Housing: House Are you a primary care professionals to a significant other at home: No Do you presently have visiting nurse or other home services: No Alcohol intake: current Comment: once q 2-3 months 2 drinks- has not drank for years(12/2024) Patient Tobacco Use Status: Never used Tobacco Tobacco use type: Cigarette e-Cigarette/Vaping Use: Never Used Second Hand Smoke Exposure: No service: No Current occupational status: retired Current occupation: Left handed Cognitive needs: No Hearing needs: No Vision needs: No Questionnaire PHQ-9 Over the last 2 weeks, how often have you been bothered by any of the following problems? 1. Little interest or pleasure in doing things: several days 2. Feeling down, depressed, or hopeless: several days 3. Trouble falling or staying asleep, or sleeping too much: not at all 4. Feeling tired or having little energy: several days 5. Poor appetite or overeating: not at all 6. Feeling bad about yourself - or that you are a failure or have let yourself or your family down: not at all 7. Trouble concentrating on things, such as reading the newspaper or watching television: not at all 8. Moving or speaking so slowly that other people could have noticed. Or the opposite - being so fidgety or restless that you have been moving around a lot more than usual: not at all 9. Thoughts that you would be better off or of hurting yourself in some way: not at all Total score: 3 Depression Screening Interpretation: Positive Depression Screening Done: Yes 86499 - PHQ-9 Billing: Yes Source: Developed by Drs. Aquilino Dyson, Tess Silva, Wade Palmer and colleagues, with an educational summer from [employer]. Thrive Questionnaire Date Thrive assessed: 12/14/24 I am a: Patient What is your living situation today?: I have a steady place to live Within the past 12 months, did the food you bought not last and you didn't have the money to get more?: Never true Within the past 12 months, did you worry whether your food would run out before you got money to buy more?: Never true Do you have trouble paying for medicines?: No Do you have trouble getting transportation to medical appointments?: No Do you have trouble paying your heating and electricity bill?: No Do you have trouble taking care of your child, family member or friend?: No Do you have trouble with day-to-day activities such as bathing, preparing meals, shopping, managing finances, etc.?: No Are you currently unemployed and looking for a job?: No Are you interested in more education?: No Please select the resources that you would like help with: None Currently or been in a relationship where the following occur: No concerns reported THRIVE Score: 0 AUDIT C Alcohol Use Questionnaire (AUDIT-C) 1. How often do you have a drink containing alcohol?: Never Total Score: 0 SEVERIANO-7 AMB Questionnaire SEVERIANO-7 Date SEVERIANO - 7 assessed: 12/14/24 Feeling nervous, anxious, or on edge: 0 = Not at all Not being able to stop or control worryin = Not at all Worrying too much about different things: 0 = Not at all Trouble relaxin = Not at all Being so restless that it is hard to sit still: 0 = Not at all Becoming easily annoyed or irritable: 0 = Not at all Feeling afraid as if something awful might happen: 0 = Not at all Total SEVERIANO-7 score (0-4 normal; 5-9 mild; 10-14 moderate; 15-21 severe): 0 Source: Developed by Drs. Aquilino Dyson, Tess Silva, Wade Palmer and colleagues, with an educational summer from [employer]. SEVERIANO-7 Assessment Billing SEVERIANO-7 Assessment Tool: SEVERIANO-7 Assessment 93191 Review of Systems Const Denies poor appetite and Denies weakness Eyes Denies no additional complaints ENT Reports Normal hearing present, Denies dizziness, Denies nasal congestion, Denies tinnitus and Denies sore throat Card Denies chest pain, Denies syncope, Denies rapid heart rate and Denies dyspnea Resp Denies cough and Denies dyspnea GI Denies change in stool character, Reports constipation, Denies diarrhea, Denies nausea and Denies vomiting Denies dysuria and Denies urinary frequency Neuro Reports Normal hearing present, Denies confusion, Denies dizziness, Denies syncope and Denies weakness Psych Denies confusion Physical exam (Primary Care) Vital Signs: Last Vital Signs Pulse 79 12/14/24 10:18 BP 124/88 12/14/24 10:18 Pulse Ox 95 12/14/24 10:18 Oxygen Delivery Method Room Air 12/14/24 10:18 BMI result Body Mass Index 36.3 Tobacco/Smoking Status: Tobacco use Status Tobacco use date assessed 12/14/24 12/14/24 10:19 Patient Tobacco Use Status Never used Tobacco 12/14/24 10:46 Tobacco use type Cigarette 12/14/24 10:46 e-Cigarette/Vaping Use Never Used 12/14/24 10:46 PHQ-9: PHQ-9 Score PHQ-9: Total score 3 12/14/24 10:39 Depression Screening Interpretation: Positive Thrive Assessment: Date of Thrive Assessment Date Thrive assessed 12/14/24 12/14/24 10:19 Currently or been in a relationship where the following occur: No concerns reported Const General: No confusion Orientation/consciousness: No confusion HENMT Head: Yes normocephalic Ears: external ears normal and TM's normal bilaterally Face and sinus: Yes normal facial exam Mouth: moist mucous membranes Throat: Yes tonsils normal Eyes Conjunctivae: conjunctivae normal Pupils: Equal, round and reactive pupils present and Pupil accommodation reflex normal Direct Ophthalmoscopy: normal light reflex Neck Neck: No lymphadenopathy Thyroid: Thyroid normal Chest Chest palpation & inspection: normal inspection of the chest Resp Effort & Inspection: normal respiratory effort and no audible wheezes Auscultation: clear to auscultation bilaterally, no crackles, no wheezes and lung sounds not diminished Cardio Rate: regular rate Rhythm: regular rhythm Peripheral pulses: radial pulses present and dorsalis pedis present GI Palpation (GI): no masses Auscultation: normal bowel sounds and normoactive bowel sounds Rectal Exam - Male: Yes deferred Skin General skin exam: no rashes or lesions noted Rashes: no rashes Neuro General: No confusion Cranial nerves: Yes Equal, round and reactive pupils present and Yes Normal hearing present Cognition (Neuro): normal cognition Gait exam (Neuro): Normal gait present Motor exam (neuro): 12/18 motor strength present throughout Deep tendon reflexes (DTR's): Right brachioradialis reflex intensity grade: 2+, Left brachioradialis reflex intensity grade: 2+, Right patellar reflex intensity grade: 2+ and Left patellar reflex intensity grade: 2+ Extrem General: No edema Coding Level of Care Code Est Pt Prev Care >65y(93410) Diagnoses Annual physical exam Z00.00 Essential hypertension I10 Hypertension type: essential hypertension Hypercholesterolemia E78.00 Gastroesophageal reflux disease without esophagitis K21.9 Esophagitis presence: without esophagitis Benign prostatic hyperplasia with urinary frequency N40.1; R35.0 Lower urinary tract symptom detail: urinary frequency Lower urinary tract symptom presence: symptoms present Obesity (BMI 30-39.9) E66.9 Type 2 diabetes mellitus with hyperglycemia E11.65 Hearing difficulty H91.90 Impingement of left shoulder M25.812 Additional Codes SEVERIANO-7 Assessment Billing - SEVERIANO-7 Assessment Tool: SEVERIANO-7 Assessment 29242 ([id number]) PHQ-9 - 85154 - PHQ-9 Billing: Yes ([id number]) Assessment & Plan Assessment & Plan (1) Annual physical exam: Code(s): Z00.00 - Encounter for general adult medical examination without abnormal findings Category: Medical Plan: Patient is advised to eat healthy, keep well hydrated, keep active and have adequate sleep. (2) Hypertension: Code(s): I10 - Essential (primary) hypertension Category: Medical Qualifiers: Hypertension type: essential hypertension Qualified Code(s): I10 - Essential (primary) hypertension Plan: Continue with blood pressure medication. Decrease salt intake and exercise presently on amlodipine 2.5 mg once a day lisinopril hydrochlorothiazide 20/12.5 mg once a day twice a day metoprolol is 150 mg once a day (3) Hypercholesterolemia: Code(s): E78.00 - Pure hypercholesterolemia, unspecified Category: Medical Plan: Avoid fried foods, chicken skin, eggs, butter margarine, pastries and meat. Be it pork or beef they have a lot of cholesterol LDL goal of less than 100 and triglyceride of less than 150 patient presently not on any medication and will discuss planned. (4) GERD (gastroesophageal reflux disease): Code(s): K21.9 - Gastro-esophageal reflux disease without esophagitis Category: Medical Qualifiers: Esophagitis presence: without esophagitis Qualified Code(s): K21.9 - Ga stro-esophageal reflux disease without esophagitis Plan: Avoid the foods that causes that usually spicy foods, tomato products, juices, coffee, soda and foods that your sensitive to. After eating do not lie down, allow 3-4 hours before in lie down. And keep the head of bed above 30 degrees to avoid the acid from going up. (5) BPH (benign prostatic hyperplasia): Code(s): N40.0 - Benign prostatic hyperplasia without lower urinary tract symptoms Category: Medical Qualifiers: Lower urinary tract symptom detail: urinary frequency Lower urinary tract symptom presence: symptoms present Qualified Code(s): N40.1 - Benign prostatic hyperplasia with lower urinary tract symptoms; R35.0 - Frequency of micturition Plan: Patient follows up with urology and on tamsulosin and finasteride under surveillance (6) Obesity (BMI 30-39.9): Code(s): E66.9 - Obesity, unspecified Category: Medical Plan: Diet and exercise (7) Type 2 diabetes mellitus with hyperglycemia: Code(s): E11.65 - Type 2 diabetes mellitus with hyperglycemia Category: Medical Plan: Decrease the amount of carbohydrate intake, pasta, bread, rice and potatoes are all sugar and that is aside from all the sweet stuff, remember that fruits are good but they are Sweet also. Patient is reminded about Ophthalmology evaluation as well as Podiatry. (8) Hearing difficulty: Code(s): H91.90 - Unspecified hearing loss, unspecified ear Category: Medical (9) Impingement of left shoulder: Code(s): M25.812 - Other specified joint disorders, left shoulder Category: Medical Plan History of Present Illness The patient is a 74-year-old male presenting for a wellness visit and management of chronic medical conditions. He has a history of well-controlled essential hypertension, hyperlipidemia with elevated LDL cholesterol requiring dietary modifications, and gastroesophageal reflux disease controlled with omeprazole. He reports ongoing management for benign prostatic hyperplasia and erectile dysfunction, with regular urological follow-ups. Additionally, his fasting blood glucose readings have confirmed a diagnosis of diabetes, although his hemoglobin A1c indicates controlled status. Health Maintenance - Blood pressure management: Current medications include amlodipine, lisinopril- hydrochlorothiazide, and metoprolol. - Lipid management: Target LDL cholesterol of less than 100 mg/dL; LDL currently at 136 mg/dL. - Diabetes management: Monitoring of fasting blood glucose and HbA1c, currently at 133 mg/dL and 6.1% respectively. - Urological follow-up: Monitoring of PSA and prostate health, use of finasteride and tamsulosin. - Vaccinations: COVID-19 vaccination, tetanus revaccination due later this year, received shingles vaccination, good standing with pneumonia vaccines. - Colonoscopy surveillance: Stool test performed four years prior, with pending scheduling for next procedure. Social History - Reports sedentary lifestyle due to boredom and season, decreased activity level. - Nutritional Intake: Consumes breakfast, often skips lunch, significant eating during supper, increased carbohydrate and sugar intake noted. - Alcohol Use: Cessation of alcohol consumption for several years despite having alcohol available at home. - Smoking/Drug Use: Denies current tobacco use or recreational drug use. - Weighs: Higher than past measurements, possibly due to decreased activity and dietary habits. Review of Systems - Cardiovascular: Denies chest pain, shortness of breath, dizziness, syncope. - Respiratory: Denies cough, wheezing. - Gastrointestinal: Reports increased appetite, denies heartburn with current medications. - Genitourinary: Reports increased nocturia, occasional urinary leakage. - Musculoskeletal: Reports discomfort with shoulder rotation. - Neurological: Denies headaches, seizures, numbness, tingling. Physical Exam General: Cooperative, healthy appearing, comfortable, no acute distress and well developed Orientation: Patient oriented x3 Limitations: No limitations Head: Normal to inspection Ears: Hearing grossly normal bilaterally Nose: Normal external nose present Face and sinus: Normal facial exam Eyes: Appearance normal, both eyes and all related structures Neck: Normal visual inspection and Yes full ROM Respiratory: Normal respiratory effort and able to speak in complete sentences. Clear to auscultation bilaterally Cardiovascular: Regular rate and rhythm. Normal S1 and S2 GI: Normal to inspection. Soft to palpation and nontender Skin: No rashes or lesions noted Neuro: Patient oriented x3 Extremities: Normal to inspection, but limited range of motion in the left shoulder due to pain, likely related to previous rotator cuff surgery. Pain noted upon lifting the arm and certain movements. No swelling or lumbar issues noted. Results - Laboratory Values: - LDL cholesterol: 136 mg/dL - Blood glucose: 133 mg/dL - Hemoglobin A1c: 6.1% Plan I will continue the current management of essential hypertension with amlodipine, lisinopril-hydrochlorothiazide, and metoprolol. For hyperlipidemia, dietary modifications will be recommended with potential consideration of statin therapy for persistent LDL elevation. The patient's GERD is controlled with omeprazole. For his BPH, I will maintain communication with his urologist regarding the use of finasteride and tamsulosin. Diabetes management will focus on dietary changes and physical activity increase to control blood sugar levels without medication initiation at this time. Future considerations include colonoscopy scheduling and tetanus vaccination update later this year. Patient was informed and verbally consented to the use of an ambient scribe for clinic note documentation during this visit. Discussion Notes I discussed the management of essential hypertension with the patient, confirming the current medication regimen. The elevated LDL cholesterol necessitates dietary changes, and this will continue to be monitored. I explained that medication may become necessary if goals are not met. For diabetic management, emphasis was placed on lifestyle changes over pharmacotherapy at this stage while maintaining monitoring. Discussion included risks associated with elevated LDL and impaired glucose, stressing the importance of adherence to dietary adjustments for cardiovascular risk reductions. The patient was informed about the need for eventual colonoscopy and updating vaccines such as tetanus later in the year. We agreed to reconvene in three months to reassess the management plan and laboratory outcomes. Patient Instructions - Continue taking blood pressure medications as prescribed. - Follow diet changes to lower LDL cholesterol; reduce intake of high cholesterol and high-sugar foods. - Maintain current GERD management with omeprazole. - Follow-up with urology for ongoing BPH management. - Increase physical activity to help manage blood sugar levels. - Schedule colonoscopy and update tetanus vaccination later this year. - Return for follow-up in three months or sooner if any new symptoms develop. Orders: Orders Hemoglobin A1c 3 Months E11.65 - Type 2 diabetes mellitus with hyperglycemia Comprehensive Met. Panel 3 Months E11.65 - Type 2 diabetes mellitus with hyperglycemia Lipid Panel 3 Months E11.65 - Type 2 diabetes mellitus with hyperglycemia, E78.00 - Pure hypercholesterolemia, unspecified Referrals Speech and Hearing Referral H91.90 - Unspecified hearing loss, unspecified ear
[2024-12-14 10:18] VITALS: BP 124/88; PULSE 79; O2SAT 95; BMI 36.3
== END 2024-12-14 11:10 | disposition home or self-care (01) ==
LOC: HO.HMCH 10:15
PROVIDERS: PCP Internal Medicine; Visit Provider Internal Medicine
DX: Z00.00 Encounter for general adult medical examination without abnormal findings (principal); E11.65 Type 2 diabetes mellitus with hyperglycemia; E66.9 Obesity, unspecified; Z68.36 Body mass index [BMI] 36.0-36.9, adult; I10 Essential (primary) hypertension; E78.00 Pure hypercholesterolemia, unspecified; K21.9 Gastro-esophageal reflux disease without esophagitis; N40.1 Benign prostatic hyperplasia with lower urinary tract symptoms; R35.0 Frequency of micturition; M25.812 Other specified joint disorders, left shoulder

== ENCOUNTER → 2024-12-14 10:14 | Outpatient (BNVA) | payer MEDICARE, SELFPAY | PROVIDERS: PCP Internal Medicine; Visit Provider Internal Medicine | DX: Z00.01 Encounter for general adult medical examination with abnormal findings (principal); I10 Essential (primary) hypertension; E78.00 Pure hypercholesterolemia, unspecified; K21.00 Gastro-esophageal reflux disease with esophagitis, without bleeding; N40.1 Benign prostatic hyperplasia with lower urinary tract symptoms; R35.0 Frequency of micturition; E66.9 Obesity, unspecified; E11.65 Type 2 diabetes mellitus with hyperglycemia; H91.90 Unspecified hearing loss, unspecified ear; M25.812 Other specified joint disorders, left shoulder; Z68.36 Body mass index [BMI] 36.0-36.9, adult | CPT/HCPCS: 96127; 99397 ==

== ENCOUNTER 2025-01-05 16:07 | Outpatient (AMB) | payer MEDICARE, SELFPAY ==
--- NOTE | 2025-01-05 16:19 | A.OFFPC_ITS ---
Intake Visit Reasons: Sinus infection & cough. Spring Machine Operator Required: No Information Interpreted: non-clinical & clinical Systems Analyst Engineer: Not Required per policy Accompanied by: Self / Same As Patient Allergies codeine [Codeine] Adverse Reaction (Intermediate, Verified 01/05/25 16:27) hallucinations (years ago)-has had since without reaction Medication List - Last Reconciled 01/05/25 by Cesar Sanchez MD amlodipine 2.5 mg PO DAILY ascorbate calcium (vitamin C) 500 mg PO DAILY azithromycin (Zithromax) For 250 mg dose pack: take 500 mg today (day 1), then 250 mg for 4 days (days 2-5) PO blood pressure monitor (Blood Pressure Kit) As directed cetirizine (Allergy Relief (cetirizine)) 10 mg PO DAILY cholecalciferol (vitamin D3) 50 mcg PO DAILY finasteride 5 mg orally M,W, F; 90 days lisinopril-hydrochlorothiazide 20-12.5 mg 1 tab PO BID 90 days metoprolol succinate ER 150 mg (1.5 x 100 mg) PO DAILY 90 days cqrbatio-crz-OF-lycopen-lutein 0.4 mg-300 mcg- 250 mcg (Centrum Silver) 1 tab PO DAILY omeprazole 20 mg PO DAILY 90 days tamsulosin 0.4 mg PO BEDTIME vitamin E 200 units PO DAILY Tobacco use date assessed: 12/14/24 Fall risk assessment: No Falls in past year Last assessed Fall Risk: 01/05/25 Dental Screening Dental Screen Date: 12/14/24 HPI Sinus infection & cough. HPI Details sinus congestion 4 days ago , sore throat, congestion in the chest, no [place], no sore throat, cough, no fevers, PFSH Medical History (Updated 01/05/25 @ 18:09 by Cesar Sanchez MD) Impaired glucose tolerance Preop cardiovascular exam COVID-19 vaccine series completed Osteoarthritis of left hip Renal calculi Obesity (BMI 30-39.9) Erectile dysfunction BPH (benign prostatic hyperplasia) Lumbar degenerative disc disease Peripheral neuropathy PSA elevation Hypercholesterolemia Hypertension GERD (gastroesophageal reflux disease) Osteoarthritis Surgical History Status post total left knee replacement History of total right hip replacement History of esophagogastroduodenoscopy (EGD) H/O colonoscopy Hx of blepharoplasty History of circumcision History of lithotripsy History of repair of rotator cuff Family History Father Lung cancer Mother Acute CVA (cerebrovascular accident) Diabetes Hypertension CVD (cardiovascular disease) Maternal Uncle Myocardial infarction Social History Housing: House Are you a primary home care scheduler to a significant other at home: No Do you presently have visiting nurse or other home services: No Alcohol intake: current Comment: once q 2-3 months 2 drinks- has not drank for years(12/2024) Patient Tobacco Use Status: Never used Tobacco Tobacco use type: Cigarette e-Cigarette/Vaping Use: Never Used Second Hand Smoke Exposure: No service: No Current occupational status: retired Current occupation: Left handed Cognitive needs: No Hearing needs: No Vision needs: No Questionnaire Thrive Questionnaire Date Thrive assessed: 12/14/24 SEVERIANO-7 AMB Questionnaire SEVERIANO-7 Date SEVERIANO - 7 assessed: 12/14/24 Source: Developed by Drs. Aquilino Dyson, Tess Silva, Wade Palmer and colleagues, with an educational summer from [employer]. Physical exam (Primary Care) Tobacco/Smoking Status: Tobacco use Status Tobacco use date assessed 12/14/24 01/05/25 16:19 Patient Tobacco Use Status Never used Tobacco 01/05/25 16:19 Tobacco use type Cigarette 01/05/25 16:19 e-Cigarette/Vaping Use Never Used 01/05/25 16:19 Thrive Assessment: Date of Thrive Assessment Date Thrive assessed 12/14/24 01/05/25 16:19 Telehealth Telehealth Telehealth Platform: Telephone Location of provider rendering services: practice address Location of patient: address on file Patient Identification confirmed using: Name, : Yes Telehealth method: voice only Patient verbally consented to treatment: Yes Patient verbally consented to billing insurance company: Yes Patient informed of any privacy concerns related to visit: Yes Minutes spent on Phone/Video with Pt.: 15 Coding Level of Care Code Tele Est Pt Level 3 (12361) Diagnoses Sinus congestion R09.81 Acute bronchitis J20.9 Assessment & Plan Assessment & Plan (1) Sinus congestion: Code(s): R09.81 - Nasal congestion Category: Medical (2) Acute bronchitis: Code(s): J20.9 - Acute bronchitis, unspecified Category: Medical Plan History of Present Illness The patient is a 45-year-old female presenting for a follow-up due to multiple ongoing health concerns. She has a past diagnosis of a palpable right breast lump for which imaging was negative, with a recommendation for annual follow-up. Her iron deficiency anemia has resolved, and she is currently managing obesity, hypothyroidism, and anxiety disorder. Her musculoskeletal health is compromised due to knee osteoarthritis, which limits mobility and contributes to her weight management struggle. Recent personal losses have heightened her anxiety, affecting her daily activities. Perimenopausal symptoms, including hot flashes and vision changes, have emerged. She reports discomfort from skin changes, interpreted as benign by initial evaluation. Current medications and treatment include thyroid therapy and lifestyle modifications, alongside a review of her overall mental and physical health. Health Maintenance - Recommended follow-up for breast imaging in one year. - Adequate thyroid management with levothyroxine at 88 mcg daily. - Counseling on the importance of consistent supplementation with vitamins, including vitamin D and possible re-initiation of enzymes for digestive support. - Encouragement of regular exercise to aid weight management and mitigate arthritis symptoms. - Recommendation of melatonin use to improve sleep patterns. - Informed about skin changes being benign, with reassurance. 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 - Engages in exercise, despite challenges with motivation and energy. - Struggling with weight management due to arthritis-related pain. - Recent family stress due to the bereavement of parents noted, affecting emotional well-being. Review of Systems - General: Reports difficulty with weight management. - Musculoskeletal: Reports hip and knee arthritis pain, occasional swelling, denied other joint pain. - Dermatologic: Reports new onset of red skin dots identified as vascular lesions. - Neurological: Reports vision changes, denies headaches. - Psychological: Reports increased anxiety, recent emotional distress. - Gastrointestinal: Denies current gastrointestinal disturbances. Reports ongoing senna use for constipation management. - Endocrine: Reports stable thyroid control under current medication dosage. Physical Exam - Musculoskeletal- Noted discomfort in knee area. Results - Tests: Right breast lump evaluated via ultrasound and mammogram, showing no abnormalities. Scattered asymmetry identified on the left breast?follow-up recommended in one year. - Labs: Previous blood count, including iron levels, within normal limits after repletion. Plan I will maintain the patient's current regimen of thyroid hormone therapy, with planned monitoring of thyroid levels. Initiation of duloxetine will address anxiety and pain management, with dose adaptations over time. The option to revisit joint intervention for arthritis will depend on symptom progression, balanced against lifestyle adjustments and pain management strategies. Continued efforts in weight management through consistent activity, alongside melatonin for sleep normalization, are advised. Dermatologic observations are recognized as benign. Follow-up imaging for breast health will continue on an annual basis. Ongoing assessment of perimenopausal status will inform future treatment needs. Patient was informed and verbally consented to the use of an ambient scribe for clinic note documentation during this visit. Discussion Notes I discussed the continuation of the current thyroid hormone therapy, ensuring l evels are within the therapeutic range for symptom control. Duloxetine was introduced considering its dual role in managing anxiety and chronic pain symptoms, initially at a low dose, with plans to titrate upwards. The potential benefits of pain management optimization versus risks were detailed, emphasizing the patient?s input in her arthritis care strategy. I reinforced the importance of maintaining an active lifestyle to offset weight challenges and provided reassurance about skin findings as benign. I outlined plans for scheduled breast health follow-up and reiterated the focus on monitoring hormonal changes potentially linked with perimenopausal symptoms. I arranged for a thyroid ultrasound and possible endocrinology consultation, based on historical nodules in the patient's family. Patient Instructions - Continue thyroid medication as prescribed. - Start taking duloxetine at night, initially at a low dose. - Engage in regular exercise to help with weight management and joint health. - Use melatonin consistently to improve sleep. - Monitor any new or worsening symptoms. - Schedule a thyroid scan and follow up with endocrinology as advised. - Attend annual breast imaging follow-up. - Do not pick at skin lesions; report any changes. - Maintain an active lifestyle and manage dietary intake. - Reach out if symptoms escalate or for any uncertainty regarding medications. Medications: New azithromycin (Zithromax) For 250 mg dose pack: take 500 mg today (day 1), then 250 mg for 4 days (days 2-5) PO 6 tabs 0RF J20.9 - Acute bronchitis, unspecified
== END 2025-01-05 18:19 | disposition home or self-care (01) ==
LOC: HO.HMCH 16:08
PROVIDERS: PCP Internal Medicine; Visit Provider Internal Medicine
DX: R09.81 Nasal congestion (principal); J20.9 Acute bronchitis, unspecified

== ENCOUNTER → 2025-01-05 16:07 | Outpatient (BNVA) | payer MEDICARE, SELFPAY | PROVIDERS: PCP Internal Medicine; Visit Provider Internal Medicine ==

== ENCOUNTER 2025-07-25 06:47 | Outpatient (REF) | payer MEDICARE, SELFPAY ==
[2025-07-25 10:46] LABS: Alanine Aminotransferase 33 U/L (0-40); Albumin Level 4.3 g/dL (3.5-5.0); Alkaline Phosphatase 130 U/L (39-117); Anion Gap 11 (12-20); Aspartate Amino Transferase 31 U/L (5-37); Blood Urea Nitrogen 10 mg/dL (9-16); Calcium 9.0 mg/dL (8.4-10.2); Carbon Dioxide 28 mmol/L (22-29); Chloride 104 mmol/L (96-108); Cholesterol 176 mg/dL (<200); Estimated Glomerular Filt Rate > 60; HDL Cholesterol 38 mg/dL (>40); Potassium 3.6 mmol/L (3.3-5.1); Sodium 139 mmol/L (135-145); Total Protein 6.5 g/dL (6.5-8.0); Triglycerides 122 mg/dL (<150)
== END 2025-07-25 06:48 | disposition home or self-care (01) ==
LOC: HO.HMGCLDS 06:47
PROVIDERS: Absent Provider Urology; PCP Internal Medicine; Visit Provider Internal Medicine
DX: E11.65 Type 2 diabetes mellitus with hyperglycemia (principal); E78.00 Pure hypercholesterolemia, unspecified
CPT/HCPCS: 36415; 80053; 80061; 83036

== ENCOUNTER 2025-07-27 14:20 | Outpatient (AMB) | payer MEDICARE, SELFPAY ==
[2025-07-27 14:22] VITALS: BP 130/90; PULSE 86; O2SAT 99; BMI 35.2
--- NOTE | 2025-07-27 14:22 | MHC.PC.OV ---
Vital Signs 07/27/25 14:22 Height 5 ft 8 in Weight 231 lb 8 oz BMI 35.2 BP 130/90 H Blood Pressure Location Lt brachial Position Sitting Pulse 86 Pulse Source Pulse Oximeter Pulse Oximetry (%) 99 Oxygen Delivery Method Room Air Intake Visit Reasons: DM, reshced - see comments Subscription Crew Leader Required: No Accompanied by: Self / Same As Patient Allergies codeine (Codeine) Adverse Reaction (Intermediate, Verified 07/27/25 14:22) hallucinations (years ago)-has had since without reaction Tobacco use date assessed: 07/27/25 Fall risk assessment: No Falls in past year Last assessed Fall Risk: 07/27/25 Dental Screening Dental Screen Date: 07/27/25 Did you have a dental visit in the last 12 months?: No Did you have a dental problem in the last 6 months where you did not have access to dental care?: No Was dental information given to patient?: Patient has dentist HPI HPI Comments History of Present Illness Details Patient is a 74-year-old male with hypertension, hypercholesterolemia, GERD, BPH, and impaired glucose tolerance who presents for follow up. He is doing well and has no concerns today. Recent blood work from two days prior showed normal electrolytes, kidney and liver function. was remarkable for a glucose of 123 mg/dL and a hemoglobin A1c of 6.1%, which is in the prediabetes range and stable from November of this year. It also showed a high LDL cholesterol of 114 mg/dL, though this is a slight improvement from eight months ago. Patient does not believe he has ever been on cholesterol medication before. He reports he does not eat sweets, candy, cakes, or donuts, and consumes diet soda and 2-3 bottles of water daily. He identifies bread as his main dietary issue with carbohydrates, and also consumes pasta and rice. His exercise is currently limited as he prefers to walk outside but cannot due to the cold weather. The patient reports a significant family history of heart attacks on his mother's side in his cousins. denies smoking. [facility] Medical History (Updated 07/27/25 @ 15:04 by Ruthann Mccord MD) Impaired glucose tolerance Preop cardiovascular exam COVID-19 vaccine series completed Osteoarthritis of left hip Renal calculi Obesity (BMI 30-39.9) Erectile dysfunction BPH (benign prostatic hyperplasia) Lumbar degenerative disc disease Peripheral neuropathy PSA elevation Hypercholesterolemia Hypertension GERD (gastroesophageal reflux disease) Osteoarthritis Surgical History Status post total left knee replacement History of total right hip replacement History of esophagogastroduodenoscopy (EGD) H/O colonoscopy Hx of blepharoplasty History of circumcision History of lithotripsy History of repair of rotator cuff Family History Father Lung cancer Mother Acute CVA (cerebrovascular accident) Diabetes Hypertension CVD (cardiovascular disease) Maternal Uncle Myocardial infarction Social History Housing: House Are you a primary health care aide to a significant other at home: No Do you presently have visiting nurse or other home services: No Alcohol intake: current Comment: once q 2-3 months 2 drinks- has not drank for years(12/2024) Patient Tobacco Use Status: Never used Tobacco Tobacco use type: Cigarette e-Cigarette/Vaping Use: Never Used Second Hand Smoke Exposure: No service: No Current occupational status: retired Current occupation: Left handed Cognitive needs: No Hearing needs: No Vision needs: No Questionnaire PHQ-9 Over the last 2 weeks, how often have you been bothered by any of the following problems? 1. Little interest or pleasure in doing things: several days 2. Feeling down, depressed, or hopeless: several days 3. Trouble falling or staying asleep, or sleeping too much: not at all 4. Feeling tired or having little energy: several days 5. Poor appetite or overeating: not at all 6. Feeling bad about yourself - or that you are a failure or have let yourself or your family down: not at all 7. Trouble concentrating on things, such as reading the newspaper or watching television: not at all 8. Moving or speaking so slowly that other people could have noticed. Or the opposite - being so fidgety or restless that you have been moving around a lot more than usual: not at all 9. Thoughts that you would be better off or of hurting yourself in some way: not at all Total score: 3 Depression Screening Interpretation: Positive Depression Screening Done: Yes Source: Developed by Drs. Aquilino Dyson, Tess Silva, Wade Palmer and colleagues, with an educational summer from [employer]. Thrive Questionnaire Date Thrive assessed: 07/27/25 I am a: Patient What is your living situation today?: I have a steady place to live Within the past 12 months, did the food you bought not last and you didn't have the money to get more?: Never true Within the past 12 months, did you worry whether your food would run out before you got money to buy more?: Never true Do you have trouble paying for medicines?: No Do you have trouble getting transportation to medical appointments?: No Do you have trouble paying your heating and electricity bill?: No Do you have trouble taking care of your child, family member or friend?: No Do you have trouble with day-to-day activities such as bathing, preparing meals, shopping, managing finances, etc.?: No Are you currently unemployed and looking for a job?: No Are you interested in more education?: No Please select the resources that you would like help with: None Currently or been in a relationship where the following occur: No concerns reported THRIVE Score: 0 AUDIT C Alcohol Use Questionnaire (AUDIT-C) 1. How often do you have a drink containing alcohol?: Never 3. How often do you have six or more drinks on one occasion?: Never Total Score: 0 SEVERIANO-7 AMB Questionnaire SEVERIANO-7 Date SEVERIANO - 7 assessed: 07/27/25 Feeling nervous, anxious, or on edge: 0 = Not at all Not being able to stop or control worryin = Not at all Worrying too much about different things: 0 = Not at all Trouble relaxin = Not at all Being so restless that it is hard to sit still: 0 = Not at all Becoming easily annoyed or irritable: 0 = Not at all Feeling afraid as if something awful might happen: 0 = Not at all Total SEVERIANO-7 score (0-4 normal; 5-9 mild; 10-14 moderate; 15-21 severe): 0 Source: Developed by Tess Lucas, Wade Palmer and colleagues, with an educational summer from [employer]. Physical exam (Primary Care) Vital Signs: Last Vital Signs Pulse 86 07/27/25 14:22 BP 130/90 H 07/27/25 14:22 Pulse Ox 99 07/27/25 14:22 Oxygen Delivery Method Room Air 07/27/25 14:22 General: Well-appearing, alert, oriented ?3, in no acute distress. Cardiovascular: RRR, S1-S2 appreciated, no murmurs, rubs or gallops. Respiratory: Lungs clear to auscultation bilaterally, no wheezes, rales or rhonchi. Abdomen: Soft, nontender, nondistended. Normoactive bowel sounds. BMI result Body Mass Index 35.2 Tobacco/Smoking Status: Tobacco use Status Tobacco use date assessed 07/27/25 07/27/25 14:28 Patient Tobacco Use Status Never used Tobacco 07/27/25 14:28 Tobacco use type Cigarette 07/27/25 14:28 e-Cigarette/Vaping Use Never Used 07/27/25 14:28 PHQ-9: PHQ-9 Score PHQ-9: Total score 3 07/27/25 14:28 Depression Screening Interpretation: Positive Thrive Assessment: Date of Thrive Assessment Date Thrive assessed 07/27/25 07/27/25 14:28 Currently or been in a relationship where the following occur: No concerns reported Coding Level of Care Code Est Pt Level 4 (37734) Diagnoses Essential hypertension I10 Hypertension type: essential hypertension Hypercholesterolemia E78.00 Gastroesophageal reflux disease without esophagitis K21.9 Esophagitis presence: without esophagitis Benign prostatic hyperplasia with urinary frequency N40.1; R35.0 Lower urinary tract symptom presence: symptoms present Lower urinary tract symptom detail: urinary frequency Prediabetes R73.03 Assessment & Plan Assessment & Plan (1) Hypertension: Code(s): I10 - Essential (primary) hypertension Category: Medical Qualifiers: Hypertension type: essential hypertension Qualified Code(s): I10 - Essential (primary) hypertension Plan: on amlodipine 2.5 mg once a day, lisinopril hydrochlorothiazide 20/12.5 mg once a day twice a day and metoprolol is 150 mg once a day Educated about low-salt DASH diet (2) Hypercholesterolemia: Code(s): E78.00 - Pure hypercholesterolemia, unspecified Category: Medical Plan: Recent blood work shows LDL cholesterol is elevated at 114 mg/dL, with goal is less than 100 mg/dL. ASCVD score 23.5% with moderate to high-intensity statin recommended. Patient extensively counseled about dietary modifications including avoiding fried food, high fat food, red meat, pork, butter margarine. The choose healthier oils like all avoid or avocado oil, increase fiber intake. Plan is to start atorvastatin 10 mg at bedtime, which patient is agreeable to Repeat lipid panel prior to next visit with Dr Sanchez. Blood work ordered. (3) GERD (gastroesophageal reflux disease): Code(s): K21.9 - Gastro-esophageal reflux disease without esophagitis Category: Medical Qualifiers: Esophagitis presence: without esophagitis Qualified Code(s): K21.9 - Gastro-esophageal reflux disease without esophagitis Plan: Avoid the foods that causes that usually spicy foods, tomato products, juices, coffee, soda and foods that your sensitive to. After eating do not lie down, allow 3-4 hours before in lie down. And keep the head of bed above 30 degrees to avoid the acid from going up. (4) BPH (benign prostatic hyperplasia): Code(s): N40.0 - Benign prostatic hyperplasia without lower urinary tract symptoms Category: Medical Qualifiers: Lower urinary tract symptom presence: symptoms present Lower urinary tract symptom detail: urinary frequency Qualified Code(s): N40.1 - Benign prostatic hyperplasia with lower urinary tract symptoms; R35.0 - Frequency of micturition Plan: Patient follows up with urology and on tamsulosin and finasteride under surveillance (5) Prediabetes: Code(s): R73.03 - Prediabetes Category: Medical Plan: Recent blood work shows elevated glucose at 01:23 and A1c 6.1, consistent with prediabetes. Patient extensively counseled about diet and exercise recommendation. Repeat blood work prior to next visit with Dr. Sanchez to re-evaluate. Blood work ordered Orders: Orders Lipid Panel with Reflex 4 Months E78.5 - Hyperlipidemia, unspecified Hemoglobin A1c 4 Months R73.03 - Prediabetes Medications: New atorvastatin (Lipitor) 10 mg PO BEDTIME 30 tabs 2RF Discontinued azithromycin (Zithromax) Discontinued Reason: Patient Completed Course For 250 mg dose pack: take 500 mg today (day 1), then 250 mg for 4 days (days 2-5) PO 6 tabs 0RF J20.9 - Acute bronchitis, unspecified
--- OUTSIDE RECORDS SUMMARY | 2025-07-27 19:34 | XMS_ITS | Patient Health Record ---
Author Organization [facility] Address [address] [place] [id number] Care Team Providers Care Dry Starch Supervisor Name Role Phone Cesar Sancehz MD Primary Care Provider Aquilino Frankel [phone] Reason For Referral No Information Medications Medication SIG (Take, Route, Frequency, Duration) Notes Start Date End Date Status Vitamin D3 1000 UNIT Capsule 1 capsule O rally Once a day Active Colyte w Flavor Packs 240 GM Solution Reconstituted as directed Orally as directed; Duration: 1 day(s) 09/11/2015 Active Vitamin C 1000 MG Tablet 1 tablet Orally Once a day Active Claritin 5 MG Tablet Orally PRN Active Lisinopril 40 MG Tablet 1 tablet Orally Once a day Active Centrum Silver Tablet Orally Active Aleve 220 MG Tablet 1 tablet as needed Orally every 12 hrs Active amLODIPine Besylate 10 MG Tablet 1 tablet Orally Once a day Active Omeprazole 20 MG Tablet Delayed Release 1 tablet Orally Once a day Active Social History Social History Additional Details Category Social Info Options Details Miscellaneous: Marital status: 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 -[employer] Notes: He does not smoke or use any significant amounts of alcohol Problems Problem Type SNOMED Code ICD Code Onset Dates Problem Status W/U Status Risk Notes Problem Screening for malignant neoplasm of colon (502235233) Encounter for screening for malignant neoplasm of colon (Z12.11) Active confirmed Problem Stricture of esophagus (73171360) Esophageal obstruction (K22.2) Active confirmed Problem Screening for malignant neoplasm of rectum (308272627) Encounter for screening for malignant neoplasm of rectum (Z12.12) Active confirmed Problem Gastroesophageal reflux disease without esophagitis (097845108) Gastroesophageal reflux disease without esophagitis (K21.9) Active confirmed Plan Of Treatment Pending Test Test Name Order Date GI BIOPSY 10/14/2015 Future Test Test Name Order Date UPPER GI ENDOSCOPY BALLOOON DILATION OF ESOPH 09/11/2015 COLONOSCOPY 09/11/2015 Insurance Providers Payer Name Payer Address Payer Phone Subscriber Number Group Number Insured Name Patient Relationship to Insured Coverage Start Date Coverage End Date [facility] [employer] [address] [place] [address] [id number] JESE [id number] Self - patient is the insured Medical (General) History Medical History History ICD Code Denies [place],DM,CVA,Lung disease,renal dise ase HTN Neg. screening colonoscopy at approx. ag e 51 Esophageal obstructions in 1 08/2013 and 07/2015--- these were relieved endoscopically--the July 2015 endoscopy revealed a moderate-sized hiatal hernia Kidney stones--[facility] Surgical History Surgery Date(Month/Year) right hip total replacement 2013 rotator cuff tear repair 30+years ago
== END 2025-07-27 15:06 | disposition home or self-care (01) ==
LOC: HO.HMCH 14:21
PROVIDERS: Visit Provider Student in an Organized Health Care Education/Training Program
DX: I10 Essential (primary) hypertension (principal); E78.00 Pure hypercholesterolemia, unspecified; K21.9 Gastro-esophageal reflux disease without esophagitis; N40.1 Benign prostatic hyperplasia with lower urinary tract symptoms; R35.0 Frequency of micturition; R73.03 Prediabetes; Z23 Encounter for immunization

== ENCOUNTER → 2025-07-27 14:20 | Outpatient (BNVA) | payer MEDICARE, SELFPAY | PROVIDERS: Visit Provider Student in an Organized Health Care Education/Training Program | DX: I10 Essential (primary) hypertension (principal); K21.9 Gastro-esophageal reflux disease without esophagitis; N40.1 Benign prostatic hyperplasia with lower urinary tract symptoms; R35.0 Frequency of micturition; Z23 Encounter for immunization; Z13.31 Encounter for screening for depression; Z13.39 Encounter for screening examination for other mental health and behavioral disorders | CPT/HCPCS: 90471; 90656; 96127; 99212 ==